=== PATIENT | male | born 1945 | race Caucasian/White ===

== ENCOUNTER 2021-04-17 05:18 | Inpatient (IN) | payer OTHER, MEDICAID ==
[~2021-04-17] VITALS: Ht 177.8 cm; Wt 55.8 kg
[2021-04-17 05:18] VITALS: BP_SYST 125
--- NOTE | 2021-04-17 05:27 | NUR ---
Pt biba from [facility] for c/c AMS. Pt is on a trach with 4lpm saturating at 97%. Per ems, pt non verbal but usually tracks and nods, pt not tracking, not nodding, but blinking. Pt does not appear in distress. Pt without s/sx of pain or discomfort at this time. Placed on cardiac monitoring. awaiting for MD lyons.
--- NOTE | 2021-04-17 05:27 | NUR ---
Pt to bed 6
--- NOTE | 2021-04-17 05:49 | NUR ---
Dr Carroll at bedside for eval
[2021-04-17] MEDS ORDERED: PIPERACILLIN/TAZO 3.38 GM in D5W 50 ML IV ONE (06:15)
[2021-04-17] MEDS ORDERED: NS 1000 ML IV.SOLN IV ONE (06:15)
[2021-04-17] MEDS ORDERED: VANCOMYCIN HCL 1,000 MG in D5W 250 ML IV ONE (06:15)
--- NOTE | 2021-04-17 06:17 | NUR ---
Pts spouse at bedside
[2021-04-17] MEDS ORDERED: TYLL650 GT (06:20)
[2021-04-17] MEDS ORDERED: L. A1CAP12 GT (06:20)
[2021-04-17] MEDS ORDERED: ALBMDI INH ×2 (06:22→06:23)
[2021-04-17] MEDS ORDERED: CHLO473M5 PO (06:24)
[2021-04-17] MEDS ORDERED: CLON0.1T GT (06:26)
[2021-04-17] MEDS ORDERED: CYAN500T47 GT (06:28)
[2021-04-17] MEDS ORDERED: DOCU-144 GT (06:29)
[2021-04-17] MEDS ORDERED: APIX2.5T GT (06:31)
[2021-04-17] MEDS ORDERED: FERR220S6 GT (06:32)
[2021-04-17] MEDS ORDERED: LEVE100S GT (06:34)
[2021-04-17] MEDS ORDERED: LISI10TA29 GT (06:35)
[2021-04-17] MEDS ORDERED: METF-379 GT (06:35)
[2021-04-17] MEDS ORDERED: METO25TA6 GT (06:38)
[2021-04-17] MEDS ORDERED: NITR1PAT84 TD (06:40)
[2021-04-17] MEDS ORDERED: MULT-1089 GT (06:40)
[2021-04-17] MEDS ORDERED: AMIN30LI2 GT (06:45)
[2021-04-17 06:46] LABS: BASOPHILS % (AUTO) 0.2 % (0.0-2.0); HEMATOCRIT 31.7 % (36-54); HEMOGLOBIN 10.2 g/dL (14.0-18.0); LYMPHOCYTES # (AUTO) 1.1 K/uL (1.0-5.5); LYMPHOCYTES % (AUTO) 6.3 % (20.5-51.5); MEAN CORPUSCULAR HEMOGLOBIN 30 pg (27-31); MEAN CORPUSCULAR HGB CONC 32 % (32-36); MEAN CORPUSCULAR VOLUME 94 fL (79.0-98.0); MONOCYTES # (AUTO) 1.2 K/uL (0.0-1.0); MONOCYTES % (AUTO) 7.3 % (1.7-9.3); NEUTROPHILS # (AUTO) 14.6 K/uL (1.8-7.7); NEUTROPHILS % (AUTO) 86.2 % (40.0-70.0); PLATELET COUNT (AUTO) 355 K/uL (130-430); RED BLOOD CELL COUNT(AUTO) 3.38 MIL/uL (4.2-6.2); RED CELL DISTRIBUTION WIDTH 14.2 % (9.0-15.0); WHITE BLOOD COUNT (AUTO) 16.9 K/uL (4.8-10.8)
[2021-04-17 06:47] LABS: ANION GAP 10 (5-15); CHLORIDE 113 mmol/L (98-107); CREATININE 1.03 mg/dL (0.55-1.30); GLUCOSE 62 mg/dL (70-99); POTASSIUM 4.7 mmol/L (3.5-5.1); SODIUM SERUM 151 mmol/L (136-145); UREA NITROGEN, BLOOD 55 mg/dL (8-21)
[2021-04-17] MEDS ORDERED: CHOL100038 GT (06:47)
--- NOTE | 2021-04-17 06:50 | NUR ---
Spoke with staff Edwin from [facility]. He claims that patient normally tracks, nods his head, will do the "thumbs up" and makes a sound, say 1 or 2 words.
[2021-04-17 06:56] LABS: ALANINE AMINOTRANSFERASE 35 U/L (12-78); ALBUMIN 2.1 g/dL (3.4-4.8); ASPARTATE AMINOTRANSFERASE 35 U/L (10-37)
[2021-04-17] MEDS ORDERED: ZINC50TA69 GT (06:57)
[2021-04-17 07:10] LABS: TOTAL BILIRUBIN 0.2 mg/dL (0.0-1.0)
--- NOTE | 2021-04-17 07:18 | NUR ---
Report given to BENJAMIN Connell for continuation of care
--- NOTE | 2021-04-17 08:00 | NUR ---
75 years old male trach dependent non verbal sent to er for worsening of mental status changes, went to ct no acute distress.
[2021-04-17] MEDS ORDERED: PIPERACILLIN/TAZOBACTAM 3.375 GM/VIAL (ZOSYN) IV ONE (08:09)
[2021-04-17] MEDS ORDERED: FUROSEMIDE 40 MG/4 ML VIAL IVP ONE (08:15)
[2021-04-17] MEDS ORDERED: NITROGLYCERIN 0.4 MG TAB.SUBL SL ONE (08:15)
[2021-04-17] MEDS ORDERED: MORPHINE 4 MG INJ. 4 MG/ML VIAL IVP ONE (08:15)
[2021-04-17] MEDS ORDERED: VANCOMYCIN HCL 1000 MG/VIAL IV ONE (08:58)
[2021-04-17 09:01] LABS: BILIRUBIN,URINE NEGATIVE (NEGATIVE); BLOOD, URINE 2+ (NEGATIVE); COLOR,URINE YELLOW (YELLOW); GLUCOSE,URINE NEGATIVE (NEGATIVE); KETONES,URINE NEGATIVE (NEGATIVE); LEUKOCYTE ESTERASE ,URINE 3+ (NEGATIVE); NITRITE, URINE NEGATIVE (NEGATIVE); PROTEIN URINE TRACE (NEGATIVE); UROBILINOGEN,URINE 0.2 (0.2-1.0)
[2021-04-17 09:12] LABS: CLARITY/URINE SLIGHTLY HAZY (CLEAR)
[2021-04-17 09:19] LABS: BACTERIA,URINE MODERATE /HPF (None Seen); MUCUS,URINE 1+ /LPF (None Seen)
--- NOTE | 2021-04-17 10:29 | NUR ---
Admit order obtain from Dr Warren tele Dx sepsis. charge nurse made aware of trach, no vent.
--- NOTE | 2021-04-17 13:22 | NUR ---
patient resting non verbal, vital stable.
[2021-04-17] MEDS ORDERED: cloNIDine HCL 0.1 MG TABLET GT PRN (14:15)
[2021-04-17] MEDS ORDERED: ALBUTEROL MDI INHALATION 8 GM INH INH PRN (14:15)
[2021-04-17] MEDS ORDERED: ALBUTEROL SULFATE 0.083% 2.5 MG/3 ML VIAL.NEB INH PRN (14:15)
[2021-04-17] MEDS ORDERED: ONDANSETRON HCL 4 MG/2 ML VIAL IVP PRN (14:15)
[2021-04-17] MEDS ORDERED: NON-FORMULARY MEDICATION (Amino Acids/Protein Hydrolys (Pro-Stat Liquid) 30 ML) GT SCH (15:00)
[2021-04-17] MEDS: D5/0.45 NS 1,000 ML IV SCH (15:06)
--- NOTE | 2021-04-17 15:28 | NUR ---
CONSULTATION PAGED REASON FOR CONSULTATION:ELEVATED TROPONIN WAS CONSULT CALED?Y PERSON WHO WAS NOTIFIED:ALFONSO CONSULTING PHYSICIAN:NADJA ROJAS ELECTRIC BLASTING CAP ASSEMBLER SPECIALTY:CARDIO ELECTRIC BLASTING CAP ASSEMBLER PHONE NUMBER:[phone] REQUESTING PHYSICIAN:JOSEY GAO
[2021-04-17] MEDS ORDERED: cefTRIAXone 1 GM IVPB PREMIX 50 ML IV SCH (15:30)
--- NOTE | 2021-04-17 15:34 | NUR ---
CONSULTATION PAGED REASON FOR CONSULTATION:SEPSIS WAS CONSULT CALED?Y PERSON WHO WAS NOTIFIED:ISAIAS CONSULTING PHYSICIAN:JUDI BROWN ON CALL0 HIDE MILL WORKER SPECIALTY:ID HIDE MILL WORKER PHONE [phone]: REQUESTING PHYSICIAN:JOSEY GAO
--- NOTE | 2021-04-17 15:47 | NUR ---
CONSULTATION PAGED REASON FOR CONSULTATION:AMS WAS CONSULT CALED?Y PERSON WHO WAS NOTIFIEDTEXT MESSAGED [facility] CONSULTING PHYSICIAN:KIKO GOODWIN MEDICAL RECORDS TECHNICIAN SPECIALTY:NEURO MEDICAL RECORDS TECHNICIAN PHONE NUMBER:[phone] REQUESTING PHYSICIAN:JOSEY GAO
[2021-04-17 16:15] VITALS: BP_SYST 151
--- NOTE | 2021-04-17 16:25 | NUR ---
Patient will be admitted to care of RN, report given at bedside. Admitted to unit. Will go to room . Belongings list completed. Complete and up to date summary report printed. SBAR report to be given at bedside with opportunity for questions.
--- NOTE | 2021-04-17 16:35 | NUR ---
Admission Note Received patient from ER with diagnosis of Sepsis. Initial Plan of Care discussed with patient's , she verbalized her understanding. HOB elevated for aspiration precautions, pt placed on O2 4l via trach to T-Bar. Rocephin is infusing via gravity to LAC. Side rails up x3, bed alarm on for safety. Family at bedside and oriented to room, call light, pain management and safety.
--- NOTE | 2021-04-17 19:30 | NUR ---
CLOSING NOTE Pt resting quietly in bed, suctioned via mouth with moderate amount of thin, white sputum. Pt's family remains at bedside. Aspiration, skin and safety precautions remain in place. Call light within reach.
[2021-04-17 20:24] VITALS: BP_SYST 121
[2021-04-17] MEDS: CHLORHEXIDINE GLUCONATE 15 ML/DOSE, 480 ML MM SCH (21:00)
[2021-04-17] MEDS: APIXABAN 2.5 MG TABLET GT SCH (21:19)
[2021-04-17] MEDS: METOPROLOL TARTRATE 25 MG TABLET GT SCH (21:20)
[2021-04-18 00:04] VITALS: BP_SYST 149
[2021-04-18] MEDS: D5/0.45 NS 1,000 ML IV SCH ×3 (00:22→21:17)
--- NOTE | 2021-04-18 05:06 | NUR ---
Nutrition Update Vaughn Scale 11 noted. Pt admitted for Sepsis Diet: NPO BMI: 17.6 kg/m2 RD to follow per nutrition care standards.
--- NOTE | 2021-04-18 05:47 | NUR ---
NEURO CONSULT Sent text informing of consult to Dr. Wood [phone] RE AMS
[2021-04-18 08:00] VITALS: BP_SYST 114
[2021-04-18 08:19] LABS: BASOPHILS # (AUTO) 0.1 K/uL (0.0-0.2); BASOPHILS % (AUTO) 0.3 % (0.0-2.0); EOSINOPHILS # (AUTO) 0.1 K/uL (0.0-0.4); EOSINOPHILS % (AUTO) 0.8 % (0.0-4.0); HEMATOCRIT 29.6 % (36-54); HEMOGLOBIN 9.5 g/dL (14.0-18.0); LYMPHOCYTES # (AUTO) 1.6 K/uL (1.0-5.5); LYMPHOCYTES % (AUTO) 10.8 % (20.5-51.5); MEAN CORPUSCULAR HEMOGLOBIN 30 pg (27-31); MEAN CORPUSCULAR HGB CONC 32 % (32-36); MEAN CORPUSCULAR VOLUME 93 fL (79.0-98.0); MONOCYTES # (AUTO) 0.9 K/uL (0.0-1.0); MONOCYTES % (AUTO) 6.1 % (1.7-9.3); NEUTROPHILS # (AUTO) 12.5 K/uL (1.8-7.7); PLATELET COUNT (AUTO) 306 K/uL (130-430); RED BLOOD CELL COUNT(AUTO) 3.19 MIL/uL (4.2-6.2); RED CELL DISTRIBUTION WIDTH 14.2 % (9.0-15.0); WHITE BLOOD COUNT (AUTO) 15.3 K/uL (4.8-10.8)
[2021-04-18 08:53] LABS: ALANINE AMINOTRANSFERASE 24 U/L (12-78); ALBUMIN 1.7 g/dL (3.4-4.8); ANION GAP 11 (5-15); ASPARTATE AMINOTRANSFERASE 30 U/L (10-37); CALCIUM 8.7 mg/dL (8.4-11.0); CHLORIDE 119 mmol/L (98-107); GLUCOSE 110 mg/dL (70-99); PHOSPHORUS 3.4 mg/dL (2.7-4.5); POTASSIUM 3.7 mmol/L (3.5-5.1); SODIUM SERUM 153 mmol/L (136-145); UREA NITROGEN, BLOOD 35 mg/dL (8-21)
[2021-04-18] MEDS: NITROGLYCERIN 0.2 MG/HR PATCH.TD24 TD SCH (09:00)
[2021-04-18] MEDS: CYANOCOBALAMIN 1000 mCg TABLET PO SCH (09:00)
[2021-04-18] MEDS: CHLORHEXIDINE GLUCONATE 15 ML/DOSE, 480 ML MM SCH ×2 (09:00→21:31)
[2021-04-18] MEDS: CHOLECALCIFEROL (VITAMIN D3) 2,000 UNIT TABLET GT SCH (09:00)
[2021-04-18] MEDS: METOPROLOL TARTRATE 25 MG TABLET GT SCH ×2 (09:00→21:25)
[2021-04-18] MEDS: FERROUS SULFATE 300 MG/5 ML UDC GT SCH (09:00)
[2021-04-18] MEDS: metFORMIN HCL 500 MG TABLET GT SCH (09:00)
[2021-04-18] MEDS: MULTIVITAMINS TAB 1 TABLET GT SCH (09:00)
[2021-04-18] MEDS: LISINOPRIL 10 MG TABLET (PRINIVIL) GT SCH (09:00)
[2021-04-18] MEDS: LACTOBACILLUS RHAMNOSUS GG 1 CAP CAPSULE GT SCH (09:00)
[2021-04-18] MEDS: LevETIRAcetam 500 MG/5 ML UDC ORAL LIQUID GT SCH (09:00)
[2021-04-18 09:25] LABS: TOTAL BILIRUBIN 0.2 mg/dL (0.0-1.0)
--- NOTE | 2021-04-18 09:46 | NUR ---
consult Called Dr. Mack for Consult regarding Trach. Spoke with Denise
[2021-04-18] MEDS ORDERED: VANCOMYCIN HCL 1 GM/NS PREMIX 250 ML IV ONE (10:45)
[2021-04-18] MEDS: APIXABAN 2.5 MG TABLET GT SCH ×2 (10:45→21:21)
[2021-04-18 11:34] VITALS: BP_SYST 158
[2021-04-18] MEDS: PIPERACILLIN/TAZO 3.375/DEX-IS 50 ML IV SCH ×2 (12:00→19:04)
[2021-04-18 15:28] VITALS: BP_SYST 146
[2021-04-18 16:00] VITALS: BP_SYST 142
[2021-04-18 20:26] VITALS: BP_SYST 108
[2021-04-19] MEDS: PIPERACILLIN/TAZO 3.375/DEX-IS 50 ML IV SCH ×4 (00:10→18:22)
[2021-04-19 00:21] VITALS: BP_SYST 123
[2021-04-19] MEDS: D5/0.45 NS 1,000 ML IV SCH ×2 (06:12→17:16)
--- NOTE | 2021-04-19 07:20 | NUR ---
rcv'd pt on trach mask. no sob or distress noted. sxn'd patient using trach balderrama. trach is in place and secured with trach tie. will continue to monitor patient.
[2021-04-19 07:47] LABS: BASOPHILS % (AUTO) 0.3 % (0.0-2.0); EOSINOPHILS # (AUTO) 0.1 K/uL (0.0-0.4); EOSINOPHILS % (AUTO) 0.9 % (0.0-4.0); HEMATOCRIT 29.7 % (36-54); HEMOGLOBIN 9.4 g/dL (14.0-18.0); LYMPHOCYTES # (AUTO) 1.4 K/uL (1.0-5.5); LYMPHOCYTES % (AUTO) 11.5 % (20.5-51.5); MEAN CORPUSCULAR HEMOGLOBIN 29 pg (27-31); MEAN CORPUSCULAR HGB CONC 32 % (32-36); MEAN CORPUSCULAR VOLUME 93 fL (79.0-98.0); MONOCYTES % (AUTO) 8.1 % (1.7-9.3); NEUTROPHILS # (AUTO) 9.5 K/uL (1.8-7.7); NEUTROPHILS % (AUTO) 79.2 % (40.0-70.0); PLATELET COUNT (AUTO) 320 K/uL (130-430); RED CELL DISTRIBUTION WIDTH 14.2 % (9.0-15.0)
[2021-04-19] MEDS: FERROUS SULFATE 300 MG/5 ML UDC GT SCH (10:02)
[2021-04-19] MEDS: LISINOPRIL 10 MG TABLET (PRINIVIL) GT SCH (10:04)
[2021-04-19] MEDS: LACTOBACILLUS RHAMNOSUS GG 1 CAP CAPSULE GT SCH (10:05)
[2021-04-19] MEDS: CYANOCOBALAMIN 1000 mCg TABLET PO SCH (10:05)
[2021-04-19] MEDS: CHOLECALCIFEROL (VITAMIN D3) 2,000 UNIT TABLET GT SCH (10:05)
[2021-04-19] MEDS: APIXABAN 2.5 MG TABLET GT SCH ×2 (10:06→10:25)
[2021-04-19] MEDS: MULTIVITAMINS TAB 1 TABLET GT SCH (10:07)
[2021-04-19] MEDS: NITROGLYCERIN 0.2 MG/HR PATCH.TD24 TD SCH (10:07)
[2021-04-19] MEDS: CHLORHEXIDINE GLUCONATE 15 ML/DOSE, 480 ML MM SCH ×2 (10:09→22:39)
--- NOTE | 2021-04-19 10:09 | NUR ---
Dietitian Recommendations *Continue : NPO per MD *Recommend: initiate EN support via PEG. Glucerna 1.5 at 60ml/hr, --if bolus 240ml Q4H (1440ml /day)-- Scout BID, FWF 120ml Q4H via GT Provides: 2320 Kcal, 97gm protein and 1813ml fluids daily Meets: 88% of upper end of calorie needs and 86% of lower end of estimated protein needs. Please see Nutritional Assessment for details KAVITA, RD
[2021-04-19] MEDS: METOPROLOL TARTRATE 25 MG TABLET GT SCH ×2 (10:11→21:00)
[2021-04-19 12:12] VITALS: BP_SYST 101
[2021-04-19] MEDS: LevETIRAcetam 500 MG/5 ML UDC ORAL LIQUID GT SCH (12:24)
[2021-04-19] MEDS: metFORMIN HCL 500 MG TABLET GT SCH (12:34)
[2021-04-19 15:35] VITALS: BP_SYST 121
--- NOTE | 2021-04-19 16:41 | NUR ---
continue trach collar with O2, PRN suction pt with eye open with family at bedside dressing to heel, buttuck and lateral abdomin change, clean dry and odorless repositon Q2hr, with pillow and heel protector. eliquis stop per MD Olivarez. MRI complete. continue IV antibiotic and IV fluid.
--- NOTE | 2021-04-19 22:00 | NUR ---
Pt given Tylenol for elevated temp. 100.4 also gave oral care with suction and lip moisturizer. Pt was also repositioned on right side with heel protectors, and pillows, This is the end of my report, endorsed to staff nurse, for continue pt care.
[2021-04-19] MEDS: ACETAMINOPHEN 650 MG/20.3 ML UDC GT PRN (22:41)
[2021-04-19 23:05] VITALS: BP_SYST 86
--- NOTE | 2021-04-19 23:50 | NUR ---
Continuity of care Received report from thelma Crump RN. Pt asleep, no s/s distress noted. On trached mask. VSS, afebrile. at bedside. IV abx administered at ordered rate. BS checked 132. Safety maintained. To monitor.
[2021-04-20] MEDS: PIPERACILLIN/TAZO 3.375/DEX-IS 50 ML IV SCH ×2 (00:02→05:07)
[2021-04-20 01:11] VITALS: BP_SYST 119
--- NOTE | 2021-04-20 03:20 | NUR ---
Rounds/Oral care/suction Pt awake, non verbal. Oral care and trache suctioned thick beige mucous. HOB maintained elevated. To monitor.
[2021-04-20] MEDS: D5/0.45 NS 1,000 ML IV SCH ×3 (05:06→23:32)
--- NOTE | 2021-04-20 05:30 | NUR ---
Closing notes/Pericare Pt eyes open, non verbal. Trache suctioned pt. Incontinent of urine. Pericare provided and repositioned. GT clamped. Pt's at bedside. Call light within reach. Safety maintained. Bed low, locked siderails up x3, alarm on. To endorse to AM nurse.
[2021-04-20 08:00] VITALS: BP_SYST 140
--- NOTE | 2021-04-20 08:00 | NUR ---
rcv'd pt on 3l trach mask. pt is trached with portex 7. trach is in place and secured with trach tie. no sob or distress noted. sxn'd patient. at bedside. will continue to monitor patient.
[2021-04-20] MEDS: CHLORHEXIDINE GLUCONATE 15 ML/DOSE, 480 ML MM SCH ×2 (09:00→21:26)
[2021-04-20] MEDS: LISINOPRIL 10 MG TABLET (PRINIVIL) GT SCH (09:00)
[2021-04-20] MEDS: MULTIVITAMINS TAB 1 TABLET GT SCH (09:00)
[2021-04-20] MEDS: metFORMIN HCL 500 MG TABLET GT SCH (09:00)
[2021-04-20] MEDS: CYANOCOBALAMIN 1000 mCg TABLET PO SCH (09:00)
[2021-04-20] MEDS: LACTOBACILLUS RHAMNOSUS GG 1 CAP CAPSULE GT SCH (09:00)
[2021-04-20] MEDS: FERROUS SULFATE 300 MG/5 ML UDC GT SCH (09:00)
[2021-04-20] MEDS: LevETIRAcetam 500 MG/5 ML UDC ORAL LIQUID GT SCH (09:00)
[2021-04-20] MEDS: METOPROLOL TARTRATE 25 MG TABLET GT SCH ×2 (09:00→21:44)
[2021-04-20] MEDS: CHOLECALCIFEROL (VITAMIN D3) 2,000 UNIT TABLET GT SCH (09:00)
[2021-04-20] MEDS: NITROGLYCERIN 0.2 MG/HR PATCH.TD24 TD SCH (09:00)
--- NOTE | 2021-04-20 10:26 | NUR ---
Discharge Planning: DCP faxed pt referral to [facility] [phone].
[2021-04-20] MEDS: cefTRIAXone 1 GM in D5W 50 ML IV SCH (11:00)
[2021-04-20 13:03] VITALS: BP_SYST 145
--- NOTE | 2021-04-20 13:05 | NUR ---
sxn'd patient. at bedside. no sob or distress noted. will continue to monitor patient.
[2021-04-20 16:28] VITALS: BP_SYST 129
[2021-04-20 21:25] VITALS: BP_SYST 147
[2021-04-21 01:04] VITALS: BP_SYST 149
[2021-04-21 01:17] VITALS: BP_SYST 140
[2021-04-21 05:26] VITALS: BP_SYST 142
[2021-04-21 08:00] VITALS: BP_SYST 132
--- NOTE | 2021-04-21 08:00 | NUR ---
Morning Notes: Pt A/Ox0, resting in bed. VVS, no s/s of respiratory or cardiac distress, Tbar on 4L. IV on LAC is clean, dry and intact, running ordered fluids, RAC is clean dry and intact. Gtube is clamped,clean, dry and intact, no residual, no tube feed ordered. Condom cath in place, clean dry and intact. Fall, safety, and isolation precautions in place, call light within reach, will continue to monitor.
[2021-04-21] MEDS: LACTOBACILLUS RHAMNOSUS GG 1 CAP CAPSULE GT SCH (10:49)
[2021-04-21] MEDS: CYANOCOBALAMIN 1000 mCg TABLET PO SCH (10:50)
[2021-04-21] MEDS: MULTIVITAMINS TAB 1 TABLET GT SCH (10:50)
[2021-04-21] MEDS: CHOLECALCIFEROL (VITAMIN D3) 2,000 UNIT TABLET GT SCH (10:50)
[2021-04-21] MEDS: LISINOPRIL 10 MG TABLET (PRINIVIL) GT SCH (10:51)
[2021-04-21] MEDS: METOPROLOL TARTRATE 50 MG TABLET GT SCH ×2 (10:51→22:00)
[2021-04-21] MEDS: metFORMIN HCL 500 MG TABLET GT SCH (10:52)
[2021-04-21] MEDS: FERROUS SULFATE 300 MG/5 ML UDC GT SCH (10:52)
[2021-04-21] MEDS: NITROGLYCERIN 0.2 MG/HR PATCH.TD24 TD SCH (10:52)
[2021-04-21] MEDS: LevETIRAcetam 500 MG/5 ML UDC ORAL LIQUID GT SCH (10:53)
[2021-04-21] MEDS: D5/0.45 NS 1,000 ML IV SCH ×2 (10:54→17:30)
[2021-04-21] MEDS: CHLORHEXIDINE GLUCONATE 15 ML/DOSE, 480 ML MM SCH ×2 (10:54→21:00)
[2021-04-21] MEDS: cefTRIAXone 1 GM in D5W 50 ML IV SCH (10:57)
[2021-04-21 12:00] VITALS: BP_SYST 158
[2021-04-21 17:59] VITALS: BP_SYST 123
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
--- NOTE | 2021-04-21 19:04 | NUR ---
Closing notes: Pt A/Ox0, resting in bed. VVS, no s/s of respiratory or cardiac distress, Tbar on 4L. IV on LAC is clean, dry and intact, running ordered fluids, RAC is clean dry and intact. Gtube is clamped,clean, dry and intact, no residual, no tube feed ordered. Condom cath in place, clean dry and intact. Fall, safety, and isolation precautions in place, call light within reach, will endorse to weight shifter.
[2021-04-22 00:34] VITALS: BP_SYST 124
[2021-04-22] MEDS: D5/0.45 NS 1,000 ML IV SCH ×3 (04:15→22:59)
[2021-04-22 08:00] VITALS: BP_SYST 122
[2021-04-22] MEDS: NITROGLYCERIN 0.2 MG/HR PATCH.TD24 TD SCH (10:02)
[2021-04-22] MEDS: metFORMIN HCL 500 MG TABLET GT SCH (10:03)
[2021-04-22] MEDS: LISINOPRIL 10 MG TABLET (PRINIVIL) GT SCH (10:03)
[2021-04-22] MEDS: MULTIVITAMINS TAB 1 TABLET GT SCH (10:03)
[2021-04-22] MEDS: CYANOCOBALAMIN 1000 mCg TABLET PO SCH (10:04)
[2021-04-22] MEDS: LACTOBACILLUS RHAMNOSUS GG 1 CAP CAPSULE GT SCH (10:04)
[2021-04-22] MEDS: METOPROLOL TARTRATE 50 MG TABLET GT SCH ×2 (10:04→22:28)
[2021-04-22] MEDS: LevETIRAcetam 500 MG/5 ML UDC ORAL LIQUID GT SCH (10:05)
[2021-04-22] MEDS: CHOLECALCIFEROL (VITAMIN D3) 2,000 UNIT TABLET GT SCH (10:05)
[2021-04-22] MEDS: FERROUS SULFATE 300 MG/5 ML UDC GT SCH (10:05)
[2021-04-22] MEDS: CHLORHEXIDINE GLUCONATE 15 ML/DOSE, 480 ML MM SCH ×2 (10:06→22:35)
[2021-04-22] MEDS: cefTRIAXone 1 GM in D5W 50 ML IV SCH (11:38)
[2021-04-22 11:40] VITALS: BP_SYST 138
--- NOTE | 2021-04-22 13:40 | NUR ---
RT NOTES 1340 Placed pt on T-capped per Dr. Perkins's order. Sxn'd pt prior switching pt on t-capped. Pt placed on 2L nasal cannula. Pt saturating 98%. HR 88. will continue to monitor pt.BENJAMIN López aware.
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
[2021-04-22 15:17] VITALS: BP_SYST 116
--- NOTE | 2021-04-22 18:42 | NUR ---
Closing notes: Pt A/Ox0, resting in bed. VVS, no s/s of respiratory or cardiac distress, Trach is capped on 3L. IV on L forearm is clean, dry and intact, running ordered fluids. Gtube is clamped,clean, dry and intact, no residual, no tube feed ordered. Fall, safety, and isolation precautions in place, call light within reach, will endorse to overnight caregiver.
[2021-04-22 20:00] VITALS: BP_SYST 103
[2021-04-22 22:30] VITALS: BP_SYST 103
[2021-04-23] VITALS (9 sets, daily range): BP systolic 117–156
--- NOTE | 2021-04-23 08:00 | NUR ---
NOTES PATIENT NON VERBAL HAS OXYGEN OF 2 LITER PER NASAL CANNULA. LUNGS BILATERALLY WITH DIMINISHED AT THE BASES. COUGH BUT NON PRODUCTIVE. HAS IV ACCESS ON THE RT FOREARM WITH D51/2NS AT 100CC/HR INFUSING ON WELL. HOB ELEVATED. AT THE BEDSIDE. CALL LIGHTS WITHIN REACH. BED LOW POSITION, ALARMED AND LOCKED.
[2021-04-23] MEDS: LevETIRAcetam 500 MG/5 ML UDC ORAL LIQUID GT SCH (09:54)
[2021-04-23] MEDS: FERROUS SULFATE 300 MG/5 ML UDC GT SCH (09:54)
[2021-04-23] MEDS: NITROGLYCERIN 0.2 MG/HR PATCH.TD24 TD SCH (09:55)
[2021-04-23] MEDS: LACTOBACILLUS RHAMNOSUS GG 1 CAP CAPSULE GT SCH (09:55)
[2021-04-23] MEDS: metFORMIN HCL 500 MG TABLET GT SCH (09:56)
[2021-04-23] MEDS: CHOLECALCIFEROL (VITAMIN D3) 2,000 UNIT TABLET GT SCH (09:56)
[2021-04-23] MEDS: CYANOCOBALAMIN 1000 mCg TABLET PO SCH (09:56)
[2021-04-23] MEDS: MULTIVITAMINS TAB 1 TABLET GT SCH (09:56)
[2021-04-23] MEDS: METOPROLOL TARTRATE 50 MG TABLET GT SCH ×2 (09:59→22:43)
[2021-04-23] MEDS: CHLORHEXIDINE GLUCONATE 15 ML/DOSE, 480 ML MM SCH ×2 (10:00→21:00)
[2021-04-23] MEDS: LISINOPRIL 10 MG TABLET (PRINIVIL) GT SCH (10:00)
--- NOTE | 2021-04-23 10:00 | NUR ---
DUE MEDS GIVEN VIA G TUBE. WATER FLUSHES DONE. MADE COMFORTABLE. AT THE BEDSIDE.
--- NOTE | 2021-04-23 10:01 | NUR ---
DR YESY GIBSON MD CAME AND SAID NO SUCTIONING SO FAR AT THIS TIME.
[2021-04-23] MEDS: D5/0.45 NS 1,000 ML IV SCH ×2 (10:15→20:15)
--- NOTE | 2021-04-23 11:39 | NUR ---
Case mgt: Rec'd another order for hospice eval-per family at bedside, her daughter Nelsy is making the decisions and no family decision has been made yet-I s/w Ren at [facility], and per her notes [facility] closed the case for now but said I can fax new eval order to them at [phone] or [phone]--faxing order to [facility]. I did explain to Ren that family remains undecided for plan of care at this time-GUILLERMO RN
--- NOTE | 2021-04-23 13:30 | NUR ---
TAMI GRAIN ELEVATOR MAN INFORMED EDWIN ALEXANDER REGARDING THE HOSPICE EVALUATION. SAID WILL WAIT FOR THE DAUGHTER AND OTHER FAMILY MEMBER TO DECIDE WHERE TO GO YET. STILL AWAITING FOR THE HOSPICE TO COME AND EVALUATE THE PATIENT.
[2021-04-23] MEDS: cefTRIAXone 1 GM in D5W 50 ML IV SCH (13:35)
--- NOTE | 2021-04-23 15:10 | NUR ---
Nutrition F/U Admitting Diagnosis Sepsis Reviewed Pertinent Medical/Surgical Hx Medical Record Patient Other Medical History Comment: AMS, Hx of CVA, Seizure disorder, Atr fibr, Hx of endocarditis, Dysphagia, Hyperlipidemia, Chronic respiratory failure, Leukocytosis, S/P trach/PEG, Cerebral mass, Hospital acquired Bacterial Pneumonia per MD notes. SARS-CoV-2 Ag (Rapid) Negative 04/[address] bedside visit deferred d/t high RD load. RD spoke w/ pt's primary RN and she stated that pt is still being evaluated for hospice, but would appreciate RD rec for TF. RD relayed TF rec; RN acknowledged. Per EMR review, pt has been NPO since admission 04/17; last BM x1 04/23. Pt is at increased risk for malnutrition. EN support is warranted. Current Diet Order/Nutrition Support NPO x6 days Patient/Significant Other Unable To Verbalize Education Provided Not Indicated Pertinent Medications lopressor, zinc, dulcolax, VIT B12, VIT D3, MVI, glucophage, keppra, D5%1/2NS at 100 ml/hr (4058 kcal/day) Pertinent Labs 04/23: POC BG 70 WNL; 04/19: 04/19: WBC 12 H; 04/18: Na 153 H, K 3.7 WNL, BG 110 H, BUN 35 H, CRE 0.80 WNL Height (Feet) 5 feet Height (Inches) 10.00 inches Weight (Pounds) 123 pounds -- stable since 04/19 Weight (Calculated Kilograms) 55.008307 kilograms Patient Weight 55.792 kg Body Mass Index 17.65 kg/m2 %IBW 74 [place]/Adjusted Body Weight 166#/ 75kg Recent Weight Change Yes - 27# weight loss in 7 months. Weight Status Underweight Gastrointestinal Symptoms None Last BM Apr 18, 2021 Difficulty With: Swallowing Usual Diet At Home Glucerna 1.5 at 80mlx 20 hrs per hard chart review. Skin Integrity Comment: Vaughn scale: 10; wounds noted to anterior L foot, L posterior calf, and sacrum Estimated Energy Expenditure (kcals/day) 9805-2757 (30-35 kcal/kg IBW for sepsis/wound healing) Estimated Protein Required (g/day) 112-150 (1.5-2 gm/kg IBW for sepsis/wound healing) Estimated Fluid Required (l/day) 2.2-2.6 (1ml/calorie for maintenance) Problem/Etiology/Signs/Symptoms Predicted suboptimal nutrient intake r/t current diet order AEB NPO status, pending initiation of EN support. *ongoing Increased nutrient needs r/t metabolic demands AEB estimated calorie and protein needs for sepsis/wound healing. *ongoing Expected Outcomes/Goals Monitor EN tolerance and intake w/ goal of pt meeting >80% of estimated nutritional needs, labs trending WNL, normal GI function, skin integrity/wt maintenance. Dietitian Recommendations * EN support via PEG: Glucerna 1.5 at 60 ml/hr; if bolus feedin ml Q4h (1440ml /day), Scout BID, Free Water Flush: 150 ml Q4h via GT Provides: 2340 kcal/day, 124 gm protein/day, and 1993 ml free water/day Meets: 89% of upper end of caloric needs and 83% of upper end of estimated protein needs Follow Up High Risk: F/U in 2-3 days
--- NOTE | 2021-04-23 15:57 | NUR ---
Dietitian Recommendations * EN support via PEG: Glucerna 1.5 at 60 ml/hr; if bolus feedin ml Q4h (1440ml /day), Scout BID, Free Water Flush: 150 ml Q4h via GT Provides: 2340 kcal/day, 124 gm protein/day, and 1993 ml free water/day Meets: 89% of upper end of caloric needs and 83% of upper end of estimated protein needs LP, RD Please refer to Nutrition F/U for details.
--- NOTE | 2021-04-23 16:42 | NUR ---
LATEST BS 89 MG/DL. NO COVERAGE GIVEN AT THIS TIME. FAMILY AT THE BEDSIDE.
--- NOTE | 2021-04-23 18:00 | NUR ---
FAMILY REQUESTED TO HAVE FEEDING, IF POSSIBLE.
--- NOTE | 2021-04-23 19:15 | NUR ---
FEEDING OF GLUCERNA CAME FROM THE KITCHEN. PLEASE START THE FEEDING AT 60CC/HR PER ROBBIE RUIZ.
[2021-04-24] VITALS (7 sets, daily range): BP systolic 115–151
[2021-04-24] MEDS: D5/0.45 NS 1,000 ML IV SCH ×2 (06:03→20:53)
--- NOTE | 2021-04-24 07:54 | NUR ---
NOTES PATIENT AWAKE AND NON VERBAL. HAS OXYGEN ON 2 LNC. LUNGS BILATERALLY WITH DIMINISHED AT THE BASES. ABDOMEN SOFT AND NON DISTENDED. HAS G TUBE OF GLUCERNA 1.5 AT 60CC/HR INFUSING ON WELL. HAS IV ACCESS ON THE RT FOREARM. #22 WITH D5 1/2 NS AT 100CC/HR INFUSING ON WELL. HOB ELEVATED. AT THE BEDSIDE. WILL CONTINUE TO MONITOR.
[2021-04-24 08:50] LABS: ANION GAP 12 (5-15); CALCIUM 8.3 mg/dL (8.4-11.0); CHLORIDE 105 mmol/L (98-107); CREATININE 0.74 mg/dL (0.55-1.30); GLUCOSE 109 mg/dL (70-99); SODIUM SERUM 138 mmol/L (136-145); UREA NITROGEN, BLOOD 18 mg/dL (8-21)
--- NOTE | 2021-04-24 09:00 | NUR ---
DUE MEDS GIVEN.
[2021-04-24] MEDS: FERROUS SULFATE 300 MG/5 ML UDC GT SCH (09:46)
[2021-04-24] MEDS: LevETIRAcetam 500 MG/5 ML UDC ORAL LIQUID GT SCH (09:47)
[2021-04-24] MEDS: MULTIVITAMINS TAB 1 TABLET GT SCH (09:47)
[2021-04-24] MEDS: METOPROLOL TARTRATE 50 MG TABLET GT SCH ×2 (09:48→20:48)
[2021-04-24] MEDS: CYANOCOBALAMIN 1000 mCg TABLET PO SCH (09:49)
[2021-04-24] MEDS: LACTOBACILLUS RHAMNOSUS GG 1 CAP CAPSULE GT SCH (09:49)
[2021-04-24] MEDS: NITROGLYCERIN 0.2 MG/HR PATCH.TD24 TD SCH (09:49)
[2021-04-24] MEDS: CHOLECALCIFEROL (VITAMIN D3) 2,000 UNIT TABLET GT SCH (09:50)
[2021-04-24] MEDS: LISINOPRIL 10 MG TABLET (PRINIVIL) GT SCH (09:50)
[2021-04-24] MEDS: metFORMIN HCL 500 MG TABLET GT SCH (09:50)
[2021-04-24] MEDS: CHLORHEXIDINE GLUCONATE 15 ML/DOSE, 480 ML MM SCH ×2 (09:51→23:52)
[2021-04-24] MEDS: cefTRIAXone 1 GM in D5W 50 ML IV SCH (09:51)
--- NOTE | 2021-04-24 11:13 | NUR ---
LATEST BS 116
[2021-04-24 11:39] LABS: BASOPHILS % (AUTO) 0.3 % (0.0-2.0); EOSINOPHILS # (AUTO) 0.2 K/uL (0.0-0.4); EOSINOPHILS % (AUTO) 1.6 % (0.0-4.0); HEMATOCRIT 28.8 % (36-54); HEMOGLOBIN 9.2 g/dL (14.0-18.0); LYMPHOCYTES # (AUTO) 1.7 K/uL (1.0-5.5); LYMPHOCYTES % (AUTO) 15.3 % (20.5-51.5); MEAN CORPUSCULAR HEMOGLOBIN 29 pg (27-31); MEAN CORPUSCULAR HGB CONC 32 % (32-36); MEAN CORPUSCULAR VOLUME 91 fL (79.0-98.0); MONOCYTES # (AUTO) 1.1 K/uL (0.0-1.0); MONOCYTES % (AUTO) 9.8 % (1.7-9.3); NEUTROPHILS # (AUTO) 8.3 K/uL (1.8-7.7); PLATELET COUNT (AUTO) 340 K/uL (130-430); RED BLOOD CELL COUNT(AUTO) 3.16 MIL/uL (4.2-6.2); RED CELL DISTRIBUTION WIDTH 14.2 % (9.0-15.0); WHITE BLOOD COUNT (AUTO) 11.4 K/uL (4.8-10.8)
[2021-04-24 13:08] LABS: ERYTHROCYTE SEDIMENTATION RATE 117 MM/HR (0-15)
--- NOTE | 2021-04-24 18:44 | NUR ---
FAMILY STILL AT THE BEDSIDE.
--- NOTE | 2021-04-24 20:05 | NUR ---
NOTES: report given by nurse Turk. no distress. pt. at bedside. VS checked. pt. non verbal, on trach/capped on O2 at 2 liters per nasal canula. pt. moans and groans on stimulation. IV infusing via right arm. g tube feed @ 60 cc/hr with Glucerna. flowers cath to osd. multiple wounds noted on both feet. multiple dry echhymosis on both hands. pt. legs flaccid. both arms get stiff. bed alarm on.
--- NOTE | 2021-04-24 21:00 | NUR ---
NOTES repositioned, turn to sides. suctioned via trach and orally. HOB elevated.
--- NOTE | 2021-04-24 23:40 | NUR ---
NOTES; due hs care done, repositioned. turn to sides. BS checked 117. pt. at bedside.
[2021-04-25 00:42] VITALS: BP_SYST 130
--- NOTE | 2021-04-25 02:40 | NUR ---
NOTES: pt. turn to sides. condition observed. IV patent.
--- NOTE | 2021-04-25 05:00 | NUR ---
NOTES: Chest x ray done at bedside. left foot dressing changed and keep intact.
--- NOTE | 2021-04-25 06:15 | NUR ---
NOTES: sacral wound packing and foam dressing applied. am care/mya care. pt. incontinent of urine. turn to sides.
[2021-04-25] MEDS: D5/0.45 NS 1,000 ML IV SCH ×3 (06:23→23:50)
[2021-04-25 08:00] VITALS: BP_SYST 136
[2021-04-25 08:35] LABS: ALANINE AMINOTRANSFERASE 16 U/L (12-78); ALBUMIN 1.4 g/dL (3.4-4.8); ANION GAP 8 (5-15); ASPARTATE AMINOTRANSFERASE 34 U/L (10-37); CALCIUM 8.1 mg/dL (8.4-11.0); CHLORIDE 106 mmol/L (98-107); CREATININE 0.59 mg/dL (0.55-1.30); GLUCOSE 138 mg/dL (70-99); POTASSIUM 3.1 mmol/L (3.5-5.1); SODIUM SERUM 141 mmol/L (136-145); TOTAL BILIRUBIN 0.1 mg/dL (0.0-1.0); UREA NITROGEN, BLOOD 17 mg/dL (8-21)
[2021-04-25 08:53] LABS: BASOPHILS % (AUTO) 0.2 % (0.0-2.0); EOSINOPHILS # (AUTO) 0.2 K/uL (0.0-0.4); EOSINOPHILS % (AUTO) 1.5 % (0.0-4.0); HEMATOCRIT 25.6 % (36-54); HEMOGLOBIN 8.3 g/dL (14.0-18.0); LYMPHOCYTES # (AUTO) 1.5 K/uL (1.0-5.5); LYMPHOCYTES % (AUTO) 13.3 % (20.5-51.5); MEAN CORPUSCULAR HEMOGLOBIN 30 pg (27-31); MEAN CORPUSCULAR HGB CONC 33 % (32-36); MEAN CORPUSCULAR VOLUME 91 fL (79.0-98.0); MONOCYTES # (AUTO) 0.9 K/uL (0.0-1.0); MONOCYTES % (AUTO) 8.3 % (1.7-9.3); NEUTROPHILS # (AUTO) 8.7 K/uL (1.8-7.7); NEUTROPHILS % (AUTO) 76.7 % (40.0-70.0); PLATELET COUNT (AUTO) 342 K/uL (130-430); RED BLOOD CELL COUNT(AUTO) 2.82 MIL/uL (4.2-6.2); RED CELL DISTRIBUTION WIDTH 14.3 % (9.0-15.0); WHITE BLOOD COUNT (AUTO) 11.3 K/uL (4.8-10.8)
[2021-04-25] MEDS ORDERED: POTASSIUM CHLORIDE 20 MEQ TAB.PRT.SR GT ONE (09:00)
[2021-04-25] MEDS: LevETIRAcetam 500 MG/5 ML UDC ORAL LIQUID GT SCH (09:00)
[2021-04-25] MEDS: CHLORHEXIDINE GLUCONATE 15 ML/DOSE, 480 ML MM SCH ×2 (09:00→21:51)
[2021-04-25] MEDS: METOPROLOL TARTRATE 50 MG TABLET GT SCH ×2 (09:00→21:51)
[2021-04-25] MEDS: MULTIVITAMINS TAB 1 TABLET GT SCH (09:00)
[2021-04-25 09:47] LABS: ERYTHROCYTE SEDIMENTATION RATE 119 MM/HR (0-15)
[2021-04-25 10:19] LABS: C-REACTIVE PROTEIN QUANT 13.4 mg/dL (0-0.5)
[2021-04-25] MEDS: ENOXAPARIN SODIUM 30 MG/0.3 ML SYRINGE SUBCUT SCH (11:45)
[2021-04-25] MEDS: NITROGLYCERIN 0.2 MG/HR PATCH.TD24 TD SCH (11:49)
[2021-04-25] MEDS: LACTOBACILLUS RHAMNOSUS GG 1 CAP CAPSULE GT SCH (11:50)
[2021-04-25] MEDS: metFORMIN HCL 500 MG TABLET GT SCH (11:50)
[2021-04-25] MEDS: CYANOCOBALAMIN 1000 mCg TABLET PO SCH (11:51)
[2021-04-25 11:53] VITALS: BP_SYST 120
[2021-04-25] MEDS: CHOLECALCIFEROL (VITAMIN D3) 2,000 UNIT TABLET GT SCH (11:53)
[2021-04-25] MEDS: LISINOPRIL 10 MG TABLET (PRINIVIL) GT SCH (11:54)
--- NOTE | 2021-04-25 12:05 | NUR ---
milli murray Paged Dr. Olivarez at family request. Family wants to speak with Dr. Olivarez
[2021-04-25] MEDS: cefTRIAXone 1 GM in D5W 50 ML IV SCH (12:08)
[2021-04-25] MEDS: FERROUS SULFATE 300 MG/5 ML UDC GT SCH (12:08)
[2021-04-25 15:19] VITALS: BP_SYST 128
--- NOTE | 2021-04-25 18:00 | NUR ---
REPOSITIONED PATIENT 2 HORLY AND KEPT CLEAN AND DY. G TUBE DE CLOGGED THIS AM.NO FUSTHER PROBLEM WITH G TUBE EXCEPT IV THAT KEPT ON BEEPING. REPROGRAM AND ENDORSED TO NOC NURSE RE THE IV ISSUES THAT NEDE TO BE CHANGE IF PROBLEM PERSIST.
--- NOTE | 2021-04-25 19:20 | NUR ---
CHANGE OF SHIFT; endorsed by day shift that IV bben alarming. no distress. at bedside.
[2021-04-25 20:30] VITALS: BP_SYST 147
--- NOTE | 2021-04-25 20:30 | NUR ---
NOTES: pt. non verbal, with trach and capped, O2 @ 2 liters per nasal canula. g tube continuous. with Glucerna @ 60 cc/hr. site clean. peripheral IV on rt. forearm,infiltrated. told ,will start later. repositioned and turn to sides. pt. moans on stimulation. pt. incontinent. sacral wound dressing intact and left left leg and foot. keep elevated with pillow. multiple ecchymosis on both arms.VS checked.
--- NOTE | 2021-04-25 23:40 | NUR ---
NOTES; repositioned. skin on rt. hip reddened, z arabella applied. another try to nsert IV but unsuccessful. charge nurse katy informed. BS checked 107. continue feeding.
[2021-04-26 01:09] VITALS: BP_SYST 131
--- NOTE | 2021-04-26 02:40 | NUR ---
NOTES: pt. called and ask to suction pt. suctioned via trach with small, of thick secretions and orally but pt. does not want to popen his mouth and informed. pt. remain at bedside.
--- NOTE | 2021-04-26 06:30 | NUR ---
CLOSING NOTES; condition unchanged. trach cap with O2. gtube infusing. for further care and assist. will endorse to incoming shift, at bedside.
--- NOTE | 2021-04-26 07:30 | NUR ---
rt notes 0649 Dr. Duran decannulate pt, pt was on 2LNC. 0807 Pt saturating 99%. Titrated pt to 1LNC. will cont to monitor pt.
[2021-04-26 08:00] VITALS: BP_SYST 150
--- NOTE | 2021-04-26 08:00 | NUR ---
Morning Notes: Pt A/Ox0, resting in bed. VVS, no s/s of respiratory or cardiac distress, Trach opening is covered with clean dry gauze. IV on LFA is clean, dry and intact, running ordered fluids. Gtube is clean, dry and intact, no residual, running tube feed at ordered rate. Fall, safety, and isolation precautions in place, call light within reach, will continue to monitor.
[2021-04-26 08:22] VITALS: BP_SYST 131
[2021-04-26] MEDS: D5/0.45 NS 1,000 ML IV SCH ×2 (10:08→21:15)
[2021-04-26] MEDS: FERROUS SULFATE 300 MG/5 ML UDC GT SCH (10:10)
[2021-04-26] MEDS: NITROGLYCERIN 0.2 MG/HR PATCH.TD24 TD SCH (10:10)
[2021-04-26] MEDS: CHOLECALCIFEROL (VITAMIN D3) 2,000 UNIT TABLET GT SCH (10:11)
[2021-04-26] MEDS: LACTOBACILLUS RHAMNOSUS GG 1 CAP CAPSULE GT SCH (10:11)
[2021-04-26] MEDS: LISINOPRIL 10 MG TABLET (PRINIVIL) GT SCH (10:12)
[2021-04-26] MEDS: MULTIVITAMINS TAB 1 TABLET GT SCH (10:13)
[2021-04-26] MEDS: CYANOCOBALAMIN 1000 mCg TABLET PO SCH (10:13)
[2021-04-26] MEDS: METOPROLOL TARTRATE 50 MG TABLET GT SCH ×2 (10:13→20:20)
[2021-04-26] MEDS: LevETIRAcetam 500 MG/5 ML UDC ORAL LIQUID GT SCH (10:14)
[2021-04-26] MEDS: metFORMIN HCL 500 MG TABLET GT SCH (10:14)
[2021-04-26] MEDS: ENOXAPARIN SODIUM 30 MG/0.3 ML SYRINGE SUBCUT SCH (10:15)
[2021-04-26] MEDS: CHLORHEXIDINE GLUCONATE 15 ML/DOSE, 480 ML MM SCH ×2 (10:16→20:20)
--- NOTE | 2021-04-26 11:20 | NUR ---
Per conversation between Mercy and Dr. Olivarez family agreed to Hospice [facility], [facility] Addendum: 04/26/21 at 1249 by Anusha Harrison RN disregard not incorrect patient
[2021-04-26 11:33] VITALS: BP_SYST 139
[2021-04-26] MEDS: cefTRIAXone 1 GM in D5W 50 ML IV SCH (12:05)
[2021-04-26] MEDS: INSULIN REGULAR, HUMAN 100 UNITS/ML, 10 ML VIAL (humuLIN R) SUBCUT PRN ×2 (12:13→18:41)
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
--- NOTE | 2021-04-26 15:05 | NUR ---
spoke with patient Ghanshyam Whittington, she will like a call from Dr. Olivarez, has some question. Nelsy will also like to speak with the neurologist also has some question and would like to discuss some discrepancies she has on medical records. Discussed with Nelsy discharge to SNF, she is requesting [facility], this facility is not contracted with [facility]. She asked if we can do EDY, I explained that we do not do EDY when we have facilities in the network that have bed availability. Nelsy called back and ask if I can send her a list of the facility, list has been sent. Anusha Harrison CM @ [facility] [phone]
--- NOTE | 2021-04-26 15:16 | NUR ---
Nutrition F/U Admitting Diagnosis Sepsis Medical History Comment: AMS, Hx of CVA, Seizure disorder, Atr fibr, Hx of endocarditis, Dysphagia, Hyperlipidemia, Chronic respiratory failure, Leukocytosis, S/P trach/PEG, Cerebral mass, Hospital acquired Bacterial Pneumonia per MD notes. SARS-CoV-2 Ag (Rapid) Negative 04/[address] bedside visit deferred d/t high RD load. Per EMR review, pt tolerating TF w/ one episode of GRV 150 ml 04/26. Per MD note, hospice is begin considered. Current Diet Order/Nutrition Support Glucerna 1.5 at 60 ml/hr; if bolus feedin ml Q4h (1440ml /day), Scout BID, Free Water Flush: 150 ml Q4h via GT Provides: 2340 kcal/day, 124 gm protein/day, and 1993 ml free water/day Meets: 89% of upper end of caloric needs and 83% of upper end of estimated protein needs Pertinent Medications lopressor, zinc, VIT B12, VIT D3, MVI, ferrous sulfate, glucophage, keppra, D5%1/2NS at 100 ml/hr (4058 kcal/day) Pertinent Labs K 3.1L, BG 138 H, POC BG 154 H, Alb 1.4 L Height (Feet) 5 feet Height (Inches) 10.00 inches Weight (Pounds) 123 pounds -- stable since 04/19 Weight (Calculated Kilograms) 55.708154 kilograms Patient Weight 55.792 kg Body Mass Index 17.65 kg/m2 %IBW 74 [place]/Adjusted Body Weight 166#/ 75kg Skin Integrity Comment: Vaughn scale: 10; wounds noted to anterior L foot, L posterior calf, and sacrum Estimated Energy Expenditure (kcals/day) 8842-2819 (30-35 kcal/kg IBW for sepsis/wound healing) Estimated Protein Required (g/day) 112-150 (1.5-2 gm/kg IBW for sepsis/wound healing) Estimated Fluid Required (l/day) 2.2-2.6 (1ml/calorie for maintenance) Problem/Etiology/Signs/Symptoms Predicted suboptimal nutrient intake r/t current diet order AEB NPO status, pending initiation of EN support. *ongoing Increased nutrient needs r/t metabolic demands AEB estimated calorie and protein needs for sepsis/wound healing. *ongoing Expected Outcomes/Goals Monitor EN tolerance and intake w/ goal of pt meeting >80% of estimated nutritional needs, labs trending WNL, normal GI function, skin integrity/wt maintenance. Dietitian Recommendations * Continue Glucerna 1.5 at 60 ml/hr; if bolus feedin ml Q4h (1440ml /day), Scout BID, Free Water Flush: 150 ml Q4h via GT Provides: 2340 kcal/day, 124 gm protein/day, and 1993 ml free water/day Meets: 89% of upper end of caloric needs and 83% of upper end of estimated protein needs Follow Up High Risk: F/U in 2-3 days
[2021-04-26 15:40] VITALS: BP_SYST 129
--- NOTE | 2021-04-26 18:50 | NUR ---
Closing notes: Pt A/Ox0, resting in bed. VVS, no s/s of respiratory or cardiac distress, Trach opening is covered with clean dry gauze. IV on LFA is clean, dry and intact, running ordered fluids. Gtube is clean, dry and intact, no residual, running tube feed at ordered rate. Fall, safety, and isolation precautions in place, call light within reach, will endorse to overnight houseperson.
--- NOTE | 2021-04-26 19:15 | NUR ---
OPENING NOTES Patient resting in bed - no s/s pain or distress noted. Respirations even and unlabored - head of bed elevated NC 1L. IV site patent - no s/s redness, infection, or infiltration. Bed locked and in lowest position. Call light within reach - bed alarm on. Family and bedside.
[2021-04-26 20:00] VITALS: BP_SYST 139
[2021-04-27 00:14] VITALS: BP_SYST 134
[2021-04-27 08:10] VITALS: BP_SYST 138
--- NOTE | 2021-04-27 08:17 | NUR ---
CLOSING NOTES Patient resting in bed - no s/s pain or distress noted. Respirations even and unlabored - head of bed elevated NC 1L. IV site patent - no s/s redness, infection, or infiltration. Bed locked and in lowest position. Call light within reach - bed alarm on. Family and bedside. Endorsed 0600 blood sugar check due to running out of time in shift.
[2021-04-27] MEDS: FERROUS SULFATE 300 MG/5 ML UDC GT SCH (09:33)
[2021-04-27] MEDS: LevETIRAcetam 500 MG/5 ML UDC ORAL LIQUID GT SCH (09:33)
[2021-04-27] MEDS: LACTOBACILLUS RHAMNOSUS GG 1 CAP CAPSULE GT SCH (09:34)
[2021-04-27] MEDS: CHOLECALCIFEROL (VITAMIN D3) 2,000 UNIT TABLET GT SCH (09:34)
[2021-04-27] MEDS: metFORMIN HCL 500 MG TABLET GT SCH (09:35)
[2021-04-27] MEDS: LISINOPRIL 10 MG TABLET (PRINIVIL) GT SCH (09:36)
[2021-04-27] MEDS: NITROGLYCERIN 0.2 MG/HR PATCH.TD24 TD SCH (09:37)
[2021-04-27] MEDS: MULTIVITAMINS TAB 1 TABLET GT SCH (09:37)
[2021-04-27] MEDS: CYANOCOBALAMIN 1000 mCg TABLET PO SCH (09:37)
[2021-04-27] MEDS: METOPROLOL TARTRATE 50 MG TABLET GT SCH ×2 (09:37→21:43)
[2021-04-27] MEDS: CHLORHEXIDINE GLUCONATE 15 ML/DOSE, 480 ML MM SCH ×2 (09:39→21:40)
[2021-04-27] MEDS: cefTRIAXone 1 GM in D5W 50 ML IV SCH (11:24)
[2021-04-27 12:27] VITALS: BP_SYST 110
[2021-04-27 16:34] VITALS: BP_SYST 135
--- NOTE | 2021-04-27 19:00 | NUR ---
Closing notes: Pt A/Ox0, resting in bed. VVS, no s/s of respiratory or cardiac distress, Trach opening is covered with clean dry gauze. IV on LFA is clean, dry and intact, running ordered fluids. Gtube is clean, dry and intact, no residual, running tube feed at ordered rate. Fall, safety, and isolation precautions in place, call light within reach, will endorse to management department chair.
[2021-04-27 23:44] VITALS: BP_SYST 143
[2021-04-28 00:05] VITALS: BP_SYST 140
[2021-04-28 04:00] VITALS: BP_SYST 137
[2021-04-28 08:37] VITALS: BP_SYST 142
--- NOTE | 2021-04-28 08:42 | NUR ---
dr mckeon spoke with pt's daughter over the phone.
--- NOTE | 2021-04-28 08:42 | NUR ---
pt in stable condition, vital wnl. endorsed to assembler show motor jorje.
[2021-04-28] MEDS: CHLORHEXIDINE GLUCONATE 15 ML/DOSE, 480 ML MM SCH ×2 (09:00→21:44)
[2021-04-28] MEDS: CHOLECALCIFEROL (VITAMIN D3) 2,000 UNIT TABLET GT SCH (09:55)
[2021-04-28] MEDS: MULTIVITAMINS TAB 1 TABLET GT SCH (09:55)
[2021-04-28] MEDS: CYANOCOBALAMIN 1000 mCg TABLET PO SCH (09:56)
[2021-04-28] MEDS: metFORMIN HCL 500 MG TABLET GT SCH (09:56)
[2021-04-28] MEDS: METOPROLOL TARTRATE 50 MG TABLET GT SCH ×2 (09:57→21:43)
[2021-04-28] MEDS: LACTOBACILLUS RHAMNOSUS GG 1 CAP CAPSULE GT SCH (09:57)
[2021-04-28] MEDS: LISINOPRIL 10 MG TABLET (PRINIVIL) GT SCH (09:58)
[2021-04-28] MEDS: FERROUS SULFATE 300 MG/5 ML UDC GT SCH (09:59)
[2021-04-28] MEDS: NITROGLYCERIN 0.2 MG/HR PATCH.TD24 TD SCH (09:59)
[2021-04-28] MEDS: LevETIRAcetam 500 MG/5 ML UDC ORAL LIQUID GT SCH (10:00)
--- NOTE | 2021-04-28 11:28 | NUR ---
ROUNDS Patient resting, eye closed, with daughter at bedside. No sign of respiratory distress or pain. Patient is nonverbal and unable to follow commands. Gtube is running prescribed feeding, tolerating well. Nasal cannula in place on 1L, oxygen saturation 96%.
[2021-04-28] MEDS: cefTRIAXone 1 GM in D5W 50 ML IV SCH (11:33)
[2021-04-28 13:02] VITALS: BP_SYST 126
--- NOTE | 2021-04-28 15:00 | NUR ---
ROUNDS Patient resting with family at bedside. Wound care performed, patient tolerated well. No sign of respiratory distress or pain. All needs met at this time.
[2021-04-28 16:57] VITALS: BP_SYST 132
--- NOTE | 2021-04-28 19:51 | NUR ---
CLOSING NOTE Patient in bed resting, eyes closed. Family at bedside. No signs of respiratory distress or pain. IV site is clean, dry and intact. Gtube is patent and running prescribed fluids. Safety checks made, and endorsement made to night warehouse manager nurse. All questions answered.
[2021-04-28] MEDS: ACETAMINOPHEN 650 MG/20.3 ML UDC GT PRN ×2 (21:42→23:28)
[2021-04-29 00:38] VITALS: BP_SYST 128
[2021-04-29] MEDS: ACETAMINOPHEN 650 MG/20.3 ML UDC GT PRN ×2 (01:59→15:23)
--- NOTE | 2021-04-29 02:47 | NUR ---
TEMP REPORTED TO RN JUNE, FAMILY IS BY BEDSIDE AND RECORDS VIA PAPER EVERYTHING STAFF DOES RN JUNE AND CHARGE PABLO AWARE PT HAS BEEN FLOATED AND CHANGED
[2021-04-29 04:02] VITALS: BP_SYST 149
--- NOTE | 2021-04-29 06:28 | NUR ---
FAMILY RECORDS WHAT STAFF DOES VIA PAPER NOTES CHARGE JUNE AND RN AWARE PABLO
--- NOTE | 2021-04-29 06:28 | NUR ---
PT WAS CHANGED AND REPOSITION X 2
--- NOTE | 2021-04-29 07:40 | NUR ---
OPENING NOTE Patient asleep with family at bedside. No sign of respiratory distress, nasal cannula in place on 1L. Gtube in place, and patent, running prescribed feeding. Patients temperature is 98.9. Patient is not showing any signs of pain or discomfort. Safety checks made.
[2021-04-29 08:00] VITALS: BP_SYST 141
[2021-04-29] MEDS: CHLORHEXIDINE GLUCONATE 15 ML/DOSE, 480 ML MM SCH ×2 (09:00→20:22)
--- NOTE | 2021-04-29 09:00 | NUR ---
ASSESSMENT Assessment reviewed by Ton ALEXANDER, co-signed by Charge nurse, Gislele ALEXANDER
[2021-04-29] MEDS: FERROUS SULFATE 300 MG/5 ML UDC GT SCH (09:56)
[2021-04-29] MEDS: CHOLECALCIFEROL (VITAMIN D3) 2,000 UNIT TABLET GT SCH (10:02)
[2021-04-29] MEDS: NITROGLYCERIN 0.2 MG/HR PATCH.TD24 TD SCH (10:02)
[2021-04-29] MEDS: MULTIVITAMINS TAB 1 TABLET GT SCH (10:02)
[2021-04-29] MEDS: LISINOPRIL 10 MG TABLET (PRINIVIL) GT SCH (10:03)
[2021-04-29] MEDS: LACTOBACILLUS RHAMNOSUS GG 1 CAP CAPSULE GT SCH (10:03)
[2021-04-29] MEDS: METOPROLOL TARTRATE 50 MG TABLET GT SCH ×2 (10:03→20:22)
[2021-04-29] MEDS: CYANOCOBALAMIN 1000 mCg TABLET PO SCH (10:04)
[2021-04-29] MEDS: LevETIRAcetam 500 MG/5 ML UDC ORAL LIQUID GT SCH (10:05)
[2021-04-29] MEDS: metFORMIN HCL 500 MG TABLET GT SCH (10:05)
[2021-04-29 11:49] VITALS: BP_SYST 145
[2021-04-29] MEDS: cefTRIAXone 1 GM in D5W 50 ML IV SCH (12:00)
--- NOTE | 2021-04-29 15:42 | NUR ---
FEVER Patient experienced an elevated temperature, 100.4, administered Tylenol and initiated cooling measures. Will continue to monitor.
[2021-04-29 16:24] VITALS: BP_SYST 124
--- NOTE | 2021-04-29 19:20 | NUR ---
CLOSING NOTE Patient in bed resting with eyes closed. No sign of respiratory distress, nasal cannula in place on 1L. Temperature has been reduced post tylenol and cooling measures. Gtube in place running prescribed fluids. Repositioned patient for comfort with pillows. Safety checks made, all needs met at this time. Endorsed to night nurse, answered all questions.
[2021-04-29 20:18] VITALS: BP_SYST 118
[2021-04-30] VITALS (7 sets, daily range): BP systolic 117–149
[2021-04-30 07:06] LABS: BASOPHILS % (AUTO) 0.3 % (0.0-2.0); EOSINOPHILS % (AUTO) 0.4 % (0.0-4.0); HEMATOCRIT 31.1 % (36-54); HEMOGLOBIN 9.8 g/dL (14.0-18.0); LYMPHOCYTES # (AUTO) 1.5 K/uL (1.0-5.5); LYMPHOCYTES % (AUTO) 12.6 % (20.5-51.5); MEAN CORPUSCULAR HEMOGLOBIN 28 pg (27-31); MEAN CORPUSCULAR HGB CONC 32 % (32-36); MEAN CORPUSCULAR VOLUME 90 fL (79.0-98.0); MONOCYTES # (AUTO) 0.7 K/uL (0.0-1.0); NEUTROPHILS # (AUTO) 9.6 K/uL (1.8-7.7); NEUTROPHILS % (AUTO) 80.7 % (40.0-70.0); PLATELET COUNT (AUTO) 348 K/uL (130-430); RED BLOOD CELL COUNT(AUTO) 3.45 MIL/uL (4.2-6.2); RED CELL DISTRIBUTION WIDTH 14.4 % (9.0-15.0); WHITE BLOOD COUNT (AUTO) 11.9 K/uL (4.8-10.8)
[2021-04-30 07:09] LABS: ANION GAP 9 (5-15); CALCIUM 8.8 mg/dL (8.4-11.0); CHLORIDE 102 mmol/L (98-107); CREATININE 0.69 mg/dL (0.55-1.30); GLUCOSE 105 mg/dL (70-99); POTASSIUM 4.2 mmol/L (3.5-5.1); SODIUM SERUM 138 mmol/L (136-145); UREA NITROGEN, BLOOD 21 mg/dL (8-21)
[2021-04-30 08:42] LABS: C-REACTIVE PROTEIN QUANT 15.9 mg/dL (0-0.5)
[2021-04-30 08:58] LABS: ERYTHROCYTE SEDIMENTATION RATE 114 MM/HR (0-15)
[2021-04-30] MEDS: METOPROLOL TARTRATE 50 MG TABLET GT SCH ×2 (09:00→21:00)
[2021-04-30] MEDS: CHOLECALCIFEROL (VITAMIN D3) 2,000 UNIT TABLET GT SCH (09:00)
[2021-04-30] MEDS: LISINOPRIL 10 MG TABLET (PRINIVIL) GT SCH (09:00)
[2021-04-30] MEDS: MULTIVITAMINS TAB 1 TABLET GT SCH (09:00)
[2021-04-30] MEDS: CYANOCOBALAMIN 1000 mCg TABLET PO SCH (09:00)
[2021-04-30] MEDS: LACTOBACILLUS RHAMNOSUS GG 1 CAP CAPSULE GT SCH (09:00)
[2021-04-30] MEDS: CHLORHEXIDINE GLUCONATE 15 ML/DOSE, 480 ML MM SCH ×2 (09:00→21:00)
[2021-04-30] MEDS: NITROGLYCERIN 0.2 MG/HR PATCH.TD24 TD SCH (09:00)
[2021-04-30] MEDS: FERROUS SULFATE 300 MG/5 ML UDC GT SCH (09:00)
[2021-04-30] MEDS: LevETIRAcetam 500 MG/5 ML UDC ORAL LIQUID GT SCH (09:00)
[2021-04-30] MEDS: metFORMIN HCL 500 MG TABLET GT SCH (09:00)
--- NOTE | 2021-04-30 09:00 | NUR ---
patient repositioned at this time to protect skin break down. patient continues to wear profo boots. all bony areas padded. patient condition goes unchanged. will continue to maintain comfort and safety.
--- NOTE | 2021-04-30 11:00 | NUR ---
patient repositioned at this time. wound care completed. sacrum decub stage 2 with slough tissue, cleaned and packed and covered with mepelex, left leg decub with #1 stage two with slough, no exudate, cleaned and covered with mepelex, #2 on leg escar cleaned and covered with mepelex, #3 wound on left leg escar covered with mepelex. patient heels up loaded off bed and with profo boots to protect heel pressure areas. Family wanted to stay at bedside and take notes. education on wound care provided to patient and on plan of care. family receptive and grateful
[2021-04-30] MEDS: cefTRIAXone 1 GM in D5W 50 ML IV SCH (11:06)
--- NOTE | 2021-04-30 17:00 | NUR ---
patients left foot slightly swollen. elevated on pillows. patient repositioned every two hours. water flushes held tonight due to frequent bm's. will continue to monitor patient. patient was repositioned every two hours for skin break down. patient neurological system remains the same. patient has loud moans and snores loudly when asleep. patient dressing changed again due to being soiled with bm. patients family recording nursing care and vitals on note pad. nursing staff gave family plan of care and changes and new orders throughout the shift. family very cooperative but states they are concerned for patient due to skin breaking down in jail and unable to visit patient. family states when they would visit him through window he would be lethargic and sleeping. family was not aware of skin break down until being admitted here and able to see him. family very pleasant but concerned for patient.
[2021-05-01 01:16] VITALS: BP_SYST 137
[2021-05-01 05:40] VITALS: BP_SYST 144
--- NOTE | 2021-05-01 08:00 | NUR ---
NOTES PATIENT AWAKE BUT NON VERBAL. APHASIC. MOUTH OPEN. VITALS SIGNS STABLE. AFEBRILE. HAS IV ACCESS ON THE LEFT FOREARM #22. BUT NOT WORKING. INFILTRATED. STILL HAS G TUBE OF GLUCERNA 1.5 AT 60CC/HR INFUSING ON WELL. NO RESIDUAL NOTED. CALL LIGHTS WITHIN REACH. BED LOW POSITION, ALARMED AND LOCKED. INCONTINENT OF URINE AND BOWEL. HAS DRESSING ON THE SACRAL AREA DRY/INTACT. BOTH HEELS WITH DRESSING ON IT. DRY/INTACT. WITH BOTH HEELS PROTECTOR NOTED. WILL CONTINUE TO MONITOR. FAMILY / AT THE BEDSIDE.
[2021-05-01 08:08] VITALS: BP_SYST 134
[2021-05-01] MEDS: FERROUS SULFATE 300 MG/5 ML UDC GT SCH (09:14)
[2021-05-01] MEDS: CYANOCOBALAMIN 1000 mCg TABLET PO SCH (09:15)
[2021-05-01] MEDS: CHOLECALCIFEROL (VITAMIN D3) 2,000 UNIT TABLET GT SCH (09:15)
[2021-05-01] MEDS: metFORMIN HCL 500 MG TABLET GT SCH (09:16)
[2021-05-01] MEDS: LACTOBACILLUS RHAMNOSUS GG 1 CAP CAPSULE GT SCH (09:16)
[2021-05-01] MEDS: NITROGLYCERIN 0.2 MG/HR PATCH.TD24 TD SCH (09:17)
[2021-05-01] MEDS: MULTIVITAMINS TAB 1 TABLET GT SCH (09:18)
[2021-05-01] MEDS: CHLORHEXIDINE GLUCONATE 15 ML/DOSE, 480 ML MM SCH ×2 (09:19→21:00)
[2021-05-01] MEDS: LISINOPRIL 10 MG TABLET (PRINIVIL) GT SCH (09:19)
[2021-05-01] MEDS: LevETIRAcetam 500 MG/5 ML UDC ORAL LIQUID GT SCH (09:29)
[2021-05-01] MEDS: METOPROLOL TARTRATE 50 MG TABLET GT SCH ×2 (09:30→21:00)
--- NOTE | 2021-05-01 09:30 | NUR ---
NEW TUBE FEEDING HANGED AT THIS TIME.
--- NOTE | 2021-05-01 10:00 | NUR ---
DUE MEDS GIVEN BY CRUSHING AND GIVEN VIA G TUBE. NO RESIDUAL NOTED. WILL CONTINUE TO MONITOR PATIENTS STATUS. AT THE BEDSIDE.
[2021-05-01] MEDS: cefTRIAXone 1 GM in D5W 50 ML IV SCH (11:00)
--- NOTE | 2021-05-01 12:00 | NUR ---
NEW IV ACCESS PLACED ON RT FOREARM #22. SALINE LOCKED. PATENT/DRY.
[2021-05-01 12:44] VITALS: BP_SYST 125
--- NOTE | 2021-05-01 16:23 | NUR ---
EVERY TWO HOURS TURNING THE PATIENT. REPOSITIONED TO SIDES. MADE COMFORTABLE.
[2021-05-01 17:05] VITALS: BP_SYST 134
[2021-05-02] VITALS (7 sets, daily range): BP systolic 113–135
--- NOTE | 2021-05-02 07:30 | NUR ---
RECEIVED PT FROM BENJAMIN WHITT. ASSUMED ALL CARE.
[2021-05-02] MEDS: METOPROLOL TARTRATE 50 MG TABLET GT SCH ×2 (09:23→21:00)
[2021-05-02] MEDS: FERROUS SULFATE 300 MG/5 ML UDC GT SCH (09:24)
[2021-05-02] MEDS: LACTOBACILLUS RHAMNOSUS GG 1 CAP CAPSULE GT SCH (09:24)
[2021-05-02] MEDS: metFORMIN HCL 500 MG TABLET GT SCH (09:25)
[2021-05-02] MEDS: CYANOCOBALAMIN 1000 mCg TABLET PO SCH (09:25)
[2021-05-02] MEDS: LISINOPRIL 10 MG TABLET (PRINIVIL) GT SCH (09:26)
[2021-05-02] MEDS: MULTIVITAMINS TAB 1 TABLET GT SCH (09:26)
[2021-05-02] MEDS: NITROGLYCERIN 0.2 MG/HR PATCH.TD24 TD SCH (09:27)
[2021-05-02] MEDS: CHOLECALCIFEROL (VITAMIN D3) 2,000 UNIT TABLET GT SCH (09:27)
[2021-05-02] MEDS: CHLORHEXIDINE GLUCONATE 15 ML/DOSE, 480 ML MM SCH ×2 (09:29→21:00)
[2021-05-02] MEDS: LevETIRAcetam 500 MG/5 ML UDC ORAL LIQUID GT SCH (09:39)
[2021-05-02] MEDS: cefTRIAXone 1 GM in D5W 50 ML IV SCH (11:50)
--- NOTE | 2021-05-02 13:00 | NUR ---
WOUND CARE PREFORMED TO SACRAL SITE. SOILED DRESSING REMOVED, SITE CLEANSED WITH NS, PATTED DRY, PACKED IDOFORM AND COVERED WITH CDI OPTIFOAM. PT TOLERATED ACTIVITY WELL. NO S/S OF PAIN NOTED. REPOSITIONED FOR COMFORT.
--- NOTE | 2021-05-02 19:28 | NUR ---
ENDORSED ALL CARE TO BENJAMIN BARONE. ALL QUESTIONS AND CONCERNS ADDRESSED.
[2021-05-03 00:21] VITALS: BP_SYST 129
[2021-05-03 08:00] VITALS: BP_SYST 105
[2021-05-03] MEDS: CHLORHEXIDINE GLUCONATE 15 ML/DOSE, 480 ML MM SCH ×2 (09:00→21:00)
[2021-05-03] MEDS: LevETIRAcetam 500 MG/5 ML UDC ORAL LIQUID GT SCH (09:00)
--- NOTE | 2021-05-03 09:58 | NUR ---
Nutrition F/U Admitting Diagnosis Sepsis Medical History Comment: AMS, Hx of CVA, Seizure disorder, Atr fibr, Hx of endocarditis, Dysphagia, Hyperlipidemia, Chronic respiratory failure, Leukocytosis, S/P trach/PEG, Cerebral mass, Hospital acquired Bacterial Pneumonia per MD notes. SARS-CoV-2 Ag (Rapid) Negative 04/[address] bedside visit deferred d/t high RD load. Per EMR review, pt tolerating TF at 60 ml/hr w/ minimal GRV. Per MD note family agreed to hospice, only supportive care, no further intervention. Current Diet Order/Nutrition Support Glucerna 1.5 at 60 ml/hr; if bolus feedin ml Q4h (1440ml /day), Scout BID, Free Water Flush: 150 ml Q4h via GT Provides: 2340 kcal/day, 124 gm protein/day, and 1993 ml free water/day Meets: 89% of upper end of caloric needs and 83% of upper end of estimated protein needs Pertinent Medications Lopressor, zinc, VIT B12, VIT D3, MVI, ferrous sulfate, glucophage, Keppra, Lisinipril, RISS Pertinent Labs 04/29: WBC 11.9H, H/H 9.8L/3.1L, BG 105 H 05/03: POC BG 134H Height (Feet) 5 feet Height (Inches) 10.00 inches Weight (Pounds) 123 pounds -- stable since 04/19 Weight (Calculated Kilograms) 55.933500 kilograms Patient Weight 55.792 kg Body Mass Index 17.65 kg/m2 %IBW 74 [place]/Adjusted Body Weight 166#/ 75kg Skin Integrity Comment: Vaughn scale: 10; wounds noted to anterior L foot, L posterior calf, and sacrum Estimated Energy Expenditure (kcals/day) 0245-9324 (30-35 kcal/kg IBW for sepsis/wound healing) Estimated Protein Required (g/day) 112-150 (1.5-2 gm/kg IBW for sepsis/wound healing) Estimated Fluid Required (l/day) 2.2-2.6 (1ml/calorie for maintenance) Problem/Etiology/Signs/Symptoms Predicted suboptimal nutrient intake r/t current diet order AEB NPO status, pending initiation of EN support. *resolved Increased nutrient needs r/t metabolic demands AEB estimated calorie and protein needs for sepsis/wound healing. *ongoing Expected Outcomes/Goals Monitor EN tolerance and intake w/ goal of pt meeting >80% of estimated nutritional needs, labs trending WNL, normal GI function, skin integrity/wt maintenance. Dietitian Recommendations * Continue Glucerna 1.5 at 60 ml/hr; if bolus feedin ml Q4h (1440ml /day), Scout BID, Free Water Flush: 150 ml Q4h via GT Provides: 2340 kcal/day, 124 gm protein/day, and 1993 ml free water/day Meets: 89% of upper end of caloric needs and 83% of upper end of estimated protein needs Follow Up Low Risk: F/U in 5-7 days RU, RD
[2021-05-03] MEDS: NITROGLYCERIN 0.2 MG/HR PATCH.TD24 TD SCH (10:18)
[2021-05-03] MEDS: LACTOBACILLUS RHAMNOSUS GG 1 CAP CAPSULE GT SCH (10:19)
[2021-05-03] MEDS: metFORMIN HCL 500 MG TABLET GT SCH (10:20)
[2021-05-03] MEDS: CHOLECALCIFEROL (VITAMIN D3) 2,000 UNIT TABLET GT SCH (10:21)
[2021-05-03] MEDS: CYANOCOBALAMIN 1000 mCg TABLET PO SCH (10:21)
[2021-05-03] MEDS: METOPROLOL TARTRATE 50 MG TABLET GT SCH ×2 (10:22→21:00)
[2021-05-03] MEDS: MULTIVITAMINS TAB 1 TABLET GT SCH (10:23)
[2021-05-03] MEDS: LISINOPRIL 10 MG TABLET (PRINIVIL) GT SCH (10:24)
[2021-05-03 11:24] VITALS: BP_SYST 118
[2021-05-03] MEDS: FERROUS SULFATE 300 MG/5 ML UDC GT SCH (12:59)
[2021-05-03] MEDS: cefTRIAXone 1 GM in D5W 50 ML IV SCH (13:01)
[2021-05-03 14:04] VITALS: BP_SYST 105
[2021-05-03 15:24] VITALS: BP_SYST 96
[2021-05-03 20:00] VITALS: BP_SYST 129
[2021-05-04 02:17] VITALS: BP_SYST 156; BP_SYST 16
--- NOTE | 2021-05-04 03:01 | NUR ---
Patient continues to appear obtunded. Turn Q 2 hours with change of soiled bads and dressing changes on wounds. sleeping in chair at bedside.
[2021-05-04 04:00] VITALS: BP_SYST 137
[2021-05-04] MEDS: CHLORHEXIDINE GLUCONATE 15 ML/DOSE, 480 ML MM SCH ×2 (09:45→23:55)
[2021-05-04] MEDS: LACTOBACILLUS RHAMNOSUS GG 1 CAP CAPSULE GT SCH (09:52)
[2021-05-04] MEDS: LISINOPRIL 10 MG TABLET (PRINIVIL) GT SCH (09:53)
[2021-05-04] MEDS: MULTIVITAMINS TAB 1 TABLET GT SCH (09:54)
[2021-05-04] MEDS: METOPROLOL TARTRATE 50 MG TABLET GT SCH ×2 (09:56→23:55)
[2021-05-04] MEDS: NITROGLYCERIN 0.2 MG/HR PATCH.TD24 TD SCH (09:56)
[2021-05-04] MEDS: FERROUS SULFATE 300 MG/5 ML UDC GT SCH (09:57)
[2021-05-04] MEDS: CHOLECALCIFEROL (VITAMIN D3) 2,000 UNIT TABLET GT SCH (09:57)
[2021-05-04] MEDS: CYANOCOBALAMIN 1000 mCg TABLET PO SCH (09:57)
[2021-05-04] MEDS: metFORMIN HCL 500 MG TABLET GT SCH (09:59)
[2021-05-04] MEDS: LevETIRAcetam 500 MG/5 ML UDC ORAL LIQUID GT SCH (10:01)
[2021-05-04 11:27] VITALS: BP_SYST 129
[2021-05-04] MEDS: cefTRIAXone 1 GM in D5W 50 ML IV SCH (11:45)
[2021-05-04 15:42] VITALS: BP_SYST 141
--- NOTE | 2021-05-04 16:07 | NUR ---
0800: PATIENT IS ASLEEP, OBTUNDED, ONLY RESPONSE TO PAINFUL STIMULI WITH FACIAL GRIMACING. NO S/S OF ANY ACUTE DISTRESS NOTED. ALL NEEDS ASSESS Q HOURLY AND PRN. ABDOMEN SOFT AND NON-DISTENDED, POSITIVE BOWEL SOUND X 4 NO N/V OR DIARRHEA NOTED. SKIN WARM AND DRY WITH MULTIPLE SKIN PROBLEM NOTED. WILL F/U WITH WOUND CARE
--- NOTE | 2021-05-04 18:53 | NUR ---
DRESSING CHANGE COCCYX, SACRAL AREA AND LEFT LEG DONE. NO BLEEDING OR DISCHARGE NOTED. PATIENT REMAINED COMFORTABLE W/O ANY CHANGE IN LOC. HOSPICE CARE TO BE ARRANGE BY CASEMANAGER AND TO BE DISCHARGE ONCE EVERYTHING IS COMPLETE AND ARRANGE. WOUND CARE NURSE CONSULT WILL SEE PATIENT TOMORROW. WILL ENDORSE PATIENT TO PM SHIFT NURSE
[2021-05-04 20:00] VITALS: BP_SYST 135
[2021-05-05] MEDS: INSULIN REGULAR, HUMAN 100 UNITS/ML, 10 ML VIAL (humuLIN R) SUBCUT PRN (06:20)
--- NOTE | 2021-05-05 08:00 | NUR ---
Received report from noc RN and pt is in bed obtunded and not verbally responsive. Pt does respond to painful stimuli and has facial grimacing. No s/s of distress present. at bedside. Updated of plan of care for pt. All questions and concerns have been addressed at this time. Bed is in lowest position. Will call wound care nurse to assess pt's wounds.
[2021-05-05] MEDS: NITROGLYCERIN 0.2 MG/HR PATCH.TD24 TD SCH (09:00)
[2021-05-05] MEDS: LACTOBACILLUS RHAMNOSUS GG 1 CAP CAPSULE GT SCH (09:45)
[2021-05-05] MEDS: CHOLECALCIFEROL (VITAMIN D3) 2,000 UNIT TABLET GT SCH (09:45)
[2021-05-05] MEDS: metFORMIN HCL 500 MG TABLET GT SCH (09:45)
[2021-05-05] MEDS: METOPROLOL TARTRATE 50 MG TABLET GT SCH ×2 (09:45→21:38)
[2021-05-05] MEDS: LISINOPRIL 10 MG TABLET (PRINIVIL) GT SCH (09:45)
[2021-05-05] MEDS: MULTIVITAMINS TAB 1 TABLET GT SCH (09:45)
[2021-05-05] MEDS: FERROUS SULFATE 300 MG/5 ML UDC GT SCH (09:45)
[2021-05-05] MEDS: CYANOCOBALAMIN 1000 mCg TABLET PO SCH (09:46)
[2021-05-05] MEDS: CHLORHEXIDINE GLUCONATE 15 ML/DOSE, 480 ML MM SCH ×2 (09:46→21:38)
[2021-05-05] MEDS: LevETIRAcetam 500 MG/5 ML UDC ORAL LIQUID GT SCH (10:17)
[2021-05-05] MEDS: cefTRIAXone 1 GM in D5W 50 ML IV SCH (10:58)
[2021-05-05 11:34] VITALS: BP_SYST 124
--- NOTE | 2021-05-05 11:57 | NUR ---
All ordered medications have been given at this time. and two daughters at bedside. No s/s of distress. Bed is in lowest position. VSS. Repositioned pt to right side. OIL FIELD OPERATOR aware we have to reposition pt every 2 hours. 22g IV Right wrist intact with no infiltration noted. G-tube intact with Glucerna 1.5 Rubin running at 60ml/hr, no leaking noted. G-tube flushed with tap water 100ml.
--- NOTE | 2021-05-05 12:27 | NUR ---
Accucheck done and BS results were 135. Oral care provided to pt.
--- NOTE | 2021-05-05 14:27 | NUR ---
I left phone messages for Abby [phone] and daughter Nelsy [phone] re:assistance w/ DC planning.
--- NOTE | 2021-05-05 14:43 | NUR ---
Spoke to patient's daughter, Nelsy. She will bring the authorization form to the hospital tomorrow for Dr Olivarez to complete for care givers at home. She stated it is a covered benefit from the patient's insurance.They are planning to take her father home on hospice once the caregivers are in place.
--- NOTE | 2021-05-05 15:58 | NUR ---
Wound care has been done by Hitesh ALEXANDER. Margarette care done. VSS. Daughter at bedside. Pt obtunded but responds to painful stimuli. Bed in lowest position.
--- NOTE | 2021-05-05 15:58 | NUR ---
WOUND EVALUATION: Late note for 05/05/2021 at 1558 secondary to patient care. Wound Consult received from Dr. Olivarez. Thank you, Dr. Olivarez, for the consult. Patient received in a Elizabeth Bed with an IsoFlex ELIO mattress, awake, nonverbal, nonresponsive to verbal commands. Patient is unable to turn in bed independently. Vaughn Score is a 10. 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 Recent Labs: WBC 11.9, RBC 3.45, hemoglobin 9.8, hematocrit 31.1, ESR 114, glucose 105, C-reactive protein 15.9, albumin 1.4, POC glucose 135. Microbiology: Blood culture results x2 negative. Urine culture results negative. MRSA screen results negative. Blood culture results x2 negative. Intrinsic factors that delay wound healing: Atrial Fibrillation, Endocarditis, severe Hypoalbuminemia. Extrinsic factors that delay wound healing: Decreased mobility. Wound Assessment: 1. Stage IV pressure ulcer, present on admission. Wound bed has 60% yellow slough, 20% black slough, 20% pink tissue. No odor, scant yellow drainage. Margarette-wound intact. 100% undermining present (0.6 cm at 12 o'clock; 0.3 cm at 3 o'clock; 1.1 cm at 6 o'clock; 0.7 cm at 9 o'clock).bone is palpable and visible. Measures 5.0 cm x 6.0 cm x 3.0 cm. Recommend: Cleanse wound with normal saline. Apply moisture barrier cream to margarette-wound. Apply Venelex ointment to wound bed. Cover with Sacral foam dressing. Perform wound care daily, and as needed for dressing soiling or dislodgement. 2. Left Lateral Posterior Calf: Unstageable pressure ulcer, present on admission. Wound bed has 95% black tissue, 5% yellow tissue. No odor, scant yellow drainage. Periwound intact. Wound measures 5.5 cm x 11.6 cm. Recommend: Cleanse wound with normal saline. Apply moisture barrier cream to margarette-wound. Apply Venelex ointment to wound bed. Cover with non-adhesive foam dressings, wrapped with Jackie wrap and secure with tape. Perform wound care daily, and as needed for dressing soiling or dislodgement. Offload area at all times by placing pillows above and below wound site. 3. Left medial knee: Chronic wound, present on admission. Wound bed has 100% black scab. No odor, no drainage. Periwound intact. Wound measures 2.2 cm x 1.5 cm. Recommend: Cleanse wound with normal saline. Apply moisture barrier cream to margarette-wound. Apply Venelex ointment to wound bed. Cover with foam dressing. Perform wound care daily, and as needed for dressing soiling or dislodgement. Offload area at all times by placing pillows in between bilateral knees and ankles. 4. Left Dorsal Foot near Ankle Joint Line: Chronic ischemic wound, present on admission. Wound bed has 90% black eschar, 10% yellow eschar. No odor, no drainage. Dry, stable. Wound measures 3.3 cm x 3.2 cm. 5. Left Dorsal Foot, inferior to site: Ischemic wound, present on admission. Wound bed has 85% dry yellow tissue, 15% pink tissue. No odor, no drainage. Periwound intact. Wound measures 3.5 cm x 3.0 cm. 6. Left Dorsal Foot, medial to site: Chronic ischemic wound, present on admission. Wound bed has 100% dry red tissue. No odor, no drainage. Periwound intact. Wound measures 1.3 cm x 0.5 cm. 7. Left Lateral Malleolus/Lateral Heel: Unstageable pressure ulcer, present on admission. Wound bed has 100% black eschar. No odor, no drainage. Periwound intact. Wound measures 2.5 cm x 2.7 cm. 8. Left Medial Malleolus: Chronic wound of unknown etiology, present on admission. Wound bed has 100% dry yellow tissue. No odor, no drainage. Periwound intact. Surrounding tissue has blanchable redness. Wound measures 0.2 cm x 0.3 cm. 9. Left Posterior Medial Heel: Possible deep tissue injury that progressed to an unstageable pressure ulcer, present on admission. Wound bed has 100% black eschar. No odor, no drainage. Periwound intact. Dry, stable. Surrounding tissue has dark discolored tissue from possible prior DTI evolution is 8.2 cm x 9.5 cm. Recommend: [place] eschar and dried tissue areas with Betadine. Allow to air dry. Cover sites with nonadhesive foam dressings, then ABD pads. Wrap with Jackie wrap. Perform site care daily, and as needed for dressing soiling or dislodgment. Offload areas at all times by placing pillows underneath lower extremities. Also recommend: Reposition patient side to side only every 2 hours with pillow support and off-load pressure areas with pillows for pressure re-distribution. Offload, elevate and float bilateral heels with 1 pillow lengthwise under each extremity at all times. Place pillows in between bilateral knees and ankles at all times. Perform skin care and monitor skin integrity Q shift. Use moisture barrier cream on buttocks and other moisture susceptible areas QID and as needed for soiling. Place patient on a P500 low air-loss mattress. Recommend surgical consult for Sacral-Coccygeal wound if patient does not go on hospice care.
[2021-05-05 16:18] VITALS: BP_SYST 153
[2021-05-05] MEDS: ACETAMINOPHEN 650 MG/20.3 ML UDC GT PRN (17:22)
--- NOTE | 2021-05-05 18:30 | NUR ---
Pt's family request ABG be done to pt. Paged Dr. Olivarez, waiting for call back.
[2021-05-05 20:00] VITALS: BP_SYST 115
[2021-05-06] VITALS (7 sets, daily range): BP systolic 114–140
--- NOTE | 2021-05-06 07:40 | NUR ---
Initial Note Patient not awake, not oriented, only opens eyes to deep stimuli but unable to track or respond verbally. Patient's at bedside. No pain or distress observed. G-tube feeding running per MD order. No residual. Call light within reach, bed locked in lowest position with alarm on. Encouraged spouse to call as needed.
[2021-05-06] MEDS: CYANOCOBALAMIN 1000 mCg TABLET PO SCH (09:00)
[2021-05-06] MEDS: metFORMIN HCL 500 MG TABLET GT SCH (09:39)
[2021-05-06] MEDS: LevETIRAcetam 500 MG/5 ML UDC ORAL LIQUID GT SCH (09:39)
[2021-05-06] MEDS: METOPROLOL TARTRATE 50 MG TABLET GT SCH ×2 (09:40→20:45)
[2021-05-06] MEDS: FERROUS SULFATE 300 MG/5 ML UDC GT SCH (09:42)
[2021-05-06] MEDS: LISINOPRIL 10 MG TABLET (PRINIVIL) GT SCH (09:42)
[2021-05-06] MEDS: NITROGLYCERIN 0.2 MG/HR PATCH.TD24 TD SCH (09:42)
[2021-05-06] MEDS: LACTOBACILLUS RHAMNOSUS GG 1 CAP CAPSULE GT SCH (09:42)
[2021-05-06] MEDS: CHLORHEXIDINE GLUCONATE 15 ML/DOSE, 480 ML MM SCH ×2 (09:43→20:45)
[2021-05-06] MEDS: MULTIVITAMINS TAB 1 TABLET GT SCH (09:43)
[2021-05-06] MEDS: CHOLECALCIFEROL (VITAMIN D3) 2,000 UNIT TABLET GT SCH (09:43)
[2021-05-06] MEDS: cefTRIAXone 1 GM in D5W 50 ML IV SCH (11:39)
--- NOTE | 2021-05-06 12:15 | NUR ---
Notes Patient asleep in bed, no pain or distress observed. Patient changed and repositioned for comfort. Safety precautions in place. Daughter at bedside, encouraged to call.
[2021-05-06] MEDS: ACETAMINOPHEN 650 MG/20.3 ML UDC GT PRN (15:04)
--- NOTE | 2021-05-06 16:27 | NUR ---
Notes Patient resting in bed, pain 0/10 on FLACC scale. Temperature decreased to 99.1 from 99.6. Spouse at bedside. Cooling measures in place and will continue to monitor. Bed in lowest position with alarm on. Encouraged to call.
--- NOTE | 2021-05-06 18:53 | NUR ---
Closing Note Patient asleep in bed, no pain or distress observed. G-tube feeding running as ordered. Temperature decreased to 97.8. Spouse at bedside. Call light in reach, bed locked in lowest position with alarm on. Will monitor and endorse to night nurse.
[2021-05-07 00:36] VITALS: BP_SYST 112
[2021-05-07] MEDS: INSULIN REGULAR, HUMAN 100 UNITS/ML, 10 ML VIAL (humuLIN R) SUBCUT PRN (02:24)
--- NOTE | 2021-05-07 07:40 | NUR ---
Initial Note Patient asleep, does not wake to verbal or tactile stimuli. Obtunded. Responds to deep tactile stimuli but does not open eyes. Facial grimacing and elevated respiration rate 26 noted. 3/10 pain on FLACC scale. Spouse at bedside. Call light in reach, bed locked in lowest position with alarm on. Will continue to monitor.
[2021-05-07 08:00] VITALS: BP_SYST 139
[2021-05-07] MEDS: CYANOCOBALAMIN 1000 mCg TABLET PO SCH (09:00)
[2021-05-07] MEDS: FERROUS SULFATE 300 MG/5 ML UDC GT SCH (09:38)
[2021-05-07] MEDS: LACTOBACILLUS RHAMNOSUS GG 1 CAP CAPSULE GT SCH (09:38)
[2021-05-07] MEDS: CHOLECALCIFEROL (VITAMIN D3) 2,000 UNIT TABLET GT SCH (09:39)
[2021-05-07] MEDS: CHLORHEXIDINE GLUCONATE 15 ML/DOSE, 480 ML MM SCH ×2 (09:40→21:48)
[2021-05-07] MEDS: NITROGLYCERIN 0.2 MG/HR PATCH.TD24 TD SCH (09:41)
[2021-05-07] MEDS: LevETIRAcetam 500 MG/5 ML UDC ORAL LIQUID GT SCH (09:42)
[2021-05-07] MEDS: LISINOPRIL 10 MG TABLET (PRINIVIL) GT SCH (09:43)
[2021-05-07] MEDS: MULTIVITAMINS TAB 1 TABLET GT SCH (09:43)
[2021-05-07] MEDS: metFORMIN HCL 500 MG TABLET GT SCH (09:43)
[2021-05-07] MEDS: METOPROLOL TARTRATE 50 MG TABLET GT SCH ×2 (09:43→21:48)
[2021-05-07] MEDS: ACETAMINOPHEN 650 MG/20.3 ML UDC GT PRN (09:45)
[2021-05-07] MEDS: cefTRIAXone 1 GM in D5W 50 ML IV SCH (10:00)
--- NOTE | 2021-05-07 10:00 | NUR ---
Notes Family has documents at bedside that need to be signed by Dr. Olivarez; notified at this time. Family wants to keep the documents with them at bedside to be signed by Dr. Olivarez only.
--- NOTE | 2021-05-07 11:00 | NUR ---
Notes Patient resting in bed, daughter at bedside. Pain is controlled following PRN Tylenol. Patient changed and repositioned for comfort. No distress. Will continue to monitor. Encouraged daughter to call as needed.
[2021-05-07 11:32] VITALS: BP_SYST 97
[2021-05-07 15:16] VITALS: BP_SYST 95
--- NOTE | 2021-05-07 16:00 | NUR ---
Notes/Dressing Change Patient soiled with urine; sacral dressing soiled. Changed patient and provided wound care with aseptic technique. Cleansed with normal saline, pat dry. Applied Venelex and packed with iodoform. Applied moisture-barrier cream to surrounding skin. Covered with foam dressing. Patient appeared to tolerate procedure well. Repositioned for comfort. Call light in reach, bed locked in lowest position with alarm on. Encouraged family to call.
--- NOTE | 2021-05-07 18:30 | NUR ---
Closing Note Patient asleep in bed, no pain or distress noted. Family at bedside. Repositioned for comfort. G-tube feeding running per MD order. Elevated temperature of 99.5 decreased to 98.9 after cooling measures implemented. Will continue cooling measures and monitoring temperature. Will continue to monitor and endorse to night nurse. D/C plan for patient to go home on hospice and home health per family - need Dr. Olivarez's signature for home health documents (at bedside). Addendum: 05/07/21 at 1836 by Debra Billingsley RN Safety precautions in place; bed locked in lowest position with alarm on and side rails up.
[2021-05-08] VITALS (13 sets, daily range): BP systolic 60–157
[2021-05-08] MEDS: INSULIN REGULAR, HUMAN 100 UNITS/ML, 10 ML VIAL (humuLIN R) SUBCUT PRN (01:06)
[2021-05-08] MEDS ORDERED: CYANOCOBALAMIN 1000 mCg TABLET GT SCH (09:00)
[2021-05-08] MEDS: metFORMIN HCL 500 MG TABLET GT SCH (09:31)
[2021-05-08] MEDS: LACTOBACILLUS RHAMNOSUS GG 1 CAP CAPSULE GT SCH (09:31)
[2021-05-08] MEDS: FERROUS SULFATE 300 MG/5 ML UDC GT SCH (09:31)
[2021-05-08] MEDS: LISINOPRIL 10 MG TABLET (PRINIVIL) GT SCH (09:33)
[2021-05-08] MEDS: MULTIVITAMINS TAB 1 TABLET GT SCH (09:33)
[2021-05-08] MEDS: CHOLECALCIFEROL (VITAMIN D3) 2,000 UNIT TABLET GT SCH (09:34)
[2021-05-08] MEDS: NITROGLYCERIN 0.2 MG/HR PATCH.TD24 TD SCH (09:35)
[2021-05-08] MEDS: CHLORHEXIDINE GLUCONATE 15 ML/DOSE, 480 ML MM SCH ×2 (09:35→21:00)
[2021-05-08] MEDS: METOPROLOL TARTRATE 50 MG TABLET GT SCH ×2 (09:37→21:00)
[2021-05-08] MEDS: LevETIRAcetam 500 MG/5 ML UDC ORAL LIQUID GT SCH (09:39)
--- NOTE | 2021-05-08 10:26 | NUR ---
CONSULT: Alex CLOGGED G-TUBE DR. BUCKLEY [phone] S/W: HUSEYIN
[2021-05-08] MEDS: cefTRIAXone 1 GM in D5W 50 ML IV SCH (10:39)
[2021-05-08] MEDS: D5NS 1,000 ML IV SCH (10:39)
--- NOTE | 2021-05-08 13:30 | NUR ---
Patient was sleeping, lethargic, family at the bedside, nursing program chair and VOTING MACHINE MECHANIC went to turn the patient and reposition, upon vital assessment patient BP was 67/27, 83% O2 sat. on 3L NC. Immediately suctioned patient and placed patient on 100% non-rebreather mask, RT, charge nurse notified, and then initiated rapid response. Continued suctioning patient and placed patient on cafeteria monitor, ER charge nurse arrived and assessed patient. Notified Dr. Olivarez of change in patient condition and obtain order for 1L NS Bolus STAT and order carried out. Patient is DNR/Comfort measures and family and MD aware. Frequent vital signs taken and charted. Latest BP 120/63, HR 107, Temp. 100.5 F, respirations 20, and O2 sat. 98% on 100% NRM after bolus given. All family members currently at the bedside and provided frequent updates and emotional support. Continue to monitor patient closely and will notify MD of change in condition.
[2021-05-08] MEDS ORDERED: NACL 0.9% 1,000 ML IV ONE (14:45)
--- NOTE | 2021-05-08 20:00 | NUR ---
RECEIVED PATIENT UNRESPONSIVE W/ GCS OF 6. PATIENT IS ON 15L NRBM, SAT 98% RESPIRATION SHALLOW AND LABORED W/ USE OF ACCESSORY MUSCLES. PATIENT IS ON MILD RESPIRATORY DISTRESS. IS AT THE BEDSIDE. VS TAKEN AND DOCUMENTED. PATIENT IS FULL DNR. EXPLAINED TO THAT PATIENT IS IN MILD DISTRESS AND ASKED IS SHE WANTED STAFF TO CALL RAPID RESPONSE TEAM TO ALLEVIATE THE SITUATION OF THE PATIENT BUT STATED, "NO" "MY HAD SUFFERED ENOUGH". FAMILY REQUESTED TO KEEP BLOOD PRESSURE CALF ON HIS LEFT UPPER ARM TO CHECK EVERY 15 MINS. EXPLAINED TO THAT IT CAN BE UNCOMFORTABLE AND SOMETIMES CAUSES PAIN WHEN IT INFLATES BUT AND FAMILY PERSISTED TO KEEP IT AND CHECK HIS BLOOD PRESSURE EVERY 15 MINS. [address] NURSE STAFF TO PLACE TELEMETRY BOX TO MONITOR PATIENT'S HEARTH RATE. AGREED.
[2021-05-09 00:51] VITALS: BP_SYST 98
[2021-05-09] MEDS: D5NS 1,000 ML IV SCH (05:44)
[2021-05-09 08:00] VITALS: BP_SYST 128
--- NOTE | 2021-05-09 08:00 | NUR ---
Initial Note Patient asleep in bed, does not arouse to verbal or tactile stimuli. Noted agonal breathing. Patient is on 15 L 2 via nonbreather, saturating 99%. Respiration rate 22. Dr. Reed at bedside, will carry out new orders. Pain 7/10 on FLACC scale. Family at bedside. Patient incontinent of bowel and bladder. Will provide comfort measures per plan of care. Call light in reach, encouraged family to call as needed. Will monitor.
[2021-05-09] MEDS ORDERED: LORazepam 2 MG/ML VIAL IVP PRN (08:45)
[2021-05-09] MEDS: MORPHINE 4 MG INJ. 4 MG/ML VIAL IVP PRN ×2 (10:00→15:12)
[2021-05-09] MEDS ORDERED: COMMUNICATION ORDER XX ONE (10:45)
--- NOTE | 2021-05-09 11:00 | NUR ---
Notes Patient resting in bed, family at bedside. Pain is controlled at this time. Patient appears comfortable. Changed and repositioned for comfort. BLE elevated. HOB elevated and bed locked in lowest position. Encouraged family to call.
[2021-05-09 11:45] VITALS: BP_SYST 92
--- NOTE | 2021-05-09 15:15 | NUR ---
Notes Patient noted with 7/10 pain on FLACC scale. Noted facial grimacing, agonal breathing, respiration rate 24. With permission from family, administered Morphine per MD order. Family educated on side effects of Morphine. Will continue to monitor. Addendum: 05/09/21 at 1547 by Debra Billingsley RN Patient changed and repositioned for comfort.
[2021-05-09 15:34] VITALS: BP_SYST 108
--- NOTE | 2021-05-09 16:43 | NUR ---
Notes Patient appears more comfortable following administration of Morphine. Respiration rate 16. Continues with agonal breathing and noted occasional apnea. Family members at bedside saying goodbyes and grieving as expected. Encouraged to call as needed and therapeutic communication and support provided. Will continue to monitor.
--- NOTE | 2021-05-09 18:48 | NUR ---
Closing Note Family at bedside. Patient continues with agonal breathing. Noted elevated HR 140 and up to 160, family refusing Ativan for restlessness/anxiety. Educated on comfort of patient. Provided therapeutic communication. Will continue to monitor and educate and endorse to night nurse.
--- NOTE | 2021-05-09 19:50 | NUR ---
RECEIVED PATIENT IN SEVERE RESPIRATORY DISTRESS WITH AGONAL BREATHING. BREATHING SHALLOW AND DEEP WITH RESPIRATORY RATE OF 8 BREATHS/MINUTE. FAMILY AT THE BEDSIDE, PRAYING FOR THE PATIENT. PROVIDED PRIVACY. INSTRUCTED FAMILY TO CALL THE NURSE OF ANY THING THEY MIGHT NEED.
--- NOTE | 2021-05-09 20:12 | NUR ---
COLLISION REPAIR TECHNICIAN ADVISED NURSE TO CHECK ON THE PATIENT. ON THE MONITOR, PATIENT'S HEART RHYTHM IS ASYSTOLE. PATIENT IS DNR/DNR. WENT TO THE PT'S ROOM W/ THE CHARGE NURSE AND FOUND PATIENTS NOT BREATHING. PULSE CHECKED AND LISTENED TO THE HEART WITH NO BEATS AND PULSE OBTAINED. BLOOD PRESSURE IS NOT OBTAINABLE. FAMILY IS AT THE BEDSIDE. OFFERED COMFORT AND GAVE TIME FOR PRIVACY.
--- NOTE | 2021-05-09 21:15 | NUR ---
SPOKE TO NILDA, PATIENT'S DAUGHTER AND ASKED FOR THE NUMBER OF MORTUARY OF CHOICE. CALLED [employer] [employer] @ [phone] AND SPOKE TO JOSIE. JOSIE WILL CALL [employer] AND MAKE AN ARRANGEMENT TO MANAGER ECONOMIC THE BODY.
--- NOTE | 2021-05-09 21:50 | NUR ---
FAMILY LEFT AT THE BED SIDE. XUAN AND SIGNED THE RECORD OF . POST MORTEM PROVIDED.
--- NOTE | 2021-05-09 23:50 | NUR ---
[facility] IS THE FACILITY TO RECRUITING COORDINATOR THE BODY.
== END 2021-05-09 20:09 | DRG 871 ==
LOC: SED 05:18 → STU 10:05 → SMU 04-19 13:55
PROVIDERS: ADMIT Internal Medicine Hospice and Palliative Medicine; ATTEND Internal Medicine Hospice and Palliative Medicine
PROC: 5A1935Z Respiratory Ventilation, Less than 24 Consecutive Hours (ICD-10-PCS; principal; 2021-04-20)
DX: A41.9 Sepsis, unspecified organism (principal); J15.9 Unspecified bacterial pneumonia; G93.41 Metabolic encephalopathy; G93.6 Cerebral edema; J96.21 Acute and chronic respiratory failure with hypoxia; I63.9 Cerebral infarction, unspecified; E87.0 Hyperosmolality and hypernatremia; N39.0 Urinary tract infection, site not specified; I50.22 Chronic systolic (congestive) heart failure; E46 Unspecified protein-calorie malnutrition; I69.351 Hemiplegia and hemiparesis following cerebral infarction affecting right dominant side; I48.19 Other persistent atrial fibrillation; K94.23 Gastrostomy malfunction; G93.49 Other encephalopathy; Z68.1 Body mass index [BMI] 19.9 or less, adult; Z66 Do not resuscitate; G40.909 Epilepsy, unspecified, not intractable, without status epilepticus; I48.0 Paroxysmal atrial fibrillation; I11.0 Hypertensive heart disease with heart failure; R13.10 Dysphagia, unspecified; E88.09 Other disorders of plasma-protein metabolism, not elsewhere classified; E78.5 Hyperlipidemia, unspecified; Z20.822 Contact with and (suspected) exposure to COVID-19; R79.89 Other specified abnormal findings of blood chemistry; Y83.3 Surgical operation with formation of external stoma as the cause of abnormal reaction of the patient, or of later complication, without mention of misadventure at the time of the procedure; Y92.238 Other place in hospital as the place of occurrence of the external cause; E87.6 Hypokalemia; E11.65 Type 2 diabetes mellitus with hyperglycemia; Y95 Nosocomial condition; E11.649 Type 2 diabetes mellitus with hypoglycemia without coma; D64.9 Anemia, unspecified; Z86.79 Personal history of other diseases of the circulatory system
CPT/HCPCS: 36415; 36600; 70450-TC; 70551; 71045; 76376; 80048; 80053; 81000; 82803-TC; 82962; 83605; 83735; 84100; 84484; 85025; 85651-TC; 86140; 87040; 87081; 87086; 93005; 93306; 94640; 94760; 95816; 96365; 96366; 96367; 99285; G0378; J0696; J1650; J1815; J1940; J2270; J2543; J3370; J7060; J7613